=== PATIENT | male | born 1990 | race American Indian/Alaskan Native ===

== ENCOUNTER 2020-10-21 14:29 | Inpatient (IN) | payer OTHER ==
--- NOTE | 2020-10-21 16:14 | Event Note ---
ED Screening Note Date of service: 10/21/20 Time: 16:11 ED Screening Note: 29-year-old -[place] male presents to the emergency room complaining of left lower quadrant abdominal pain that radiates to the epigastric area x1-1/2 weeks. Patient states that this is been intermittent but now becoming constant. Patient states he has tried ibuprofen and Gas-X with no relief. Patient does admit that he drinks alcohol smokes cigarettes quit 2 weeks ago and smokes marijuana daily. Patient has a past medical history of hypertension but has never been on medication. Patient states they were told him it was white coat syndrome. The patient does admit when he checks his blood pressure at home that is elevated. This initial assessment/diagnostic orders/clinical plan/treatment(s) is/are subject to change based on patients health status, clinical progression and re- assessment by fellow clinical providers in the ED. Further treatment and workup at subsequent clinical providers discretion. Patient/guardian urged not to elope from the ED as their condition may be serious if not clinically assessed and managed. Initial orders include: CBC CMP, lipase mag, phosphorus, CT abdomen with contrast and urinalysis
[2020-10-21 16:29] LABS: Basophils # (Auto) 0.2 K/mm3 (0.0-0.1); Basophils % (Auto) 1.5 % (0.0-1.8); Eosinophils # (Auto) 0.1 K/mm3 (0.0-0.4); Eosinophils % (Auto) 1.1 % (0.0-4.3); Hematocrit 39.1 % (35.5-45.6); Hemoglobin 12.6 gm/dl (11.8-15.2); Lymphocytes # (Auto) 1.1 K/mm3 (1.2-5.4); Mean Corpuscular HGB Conc 32 % (32-34); Mean Corpuscular Volume 84 fl (84-94); Monocytes # (Auto) 0.4 K/mm3 (0.0-0.8); Monocytes % (Auto) 4.3 % (0.0-7.3); Platelet Count 409 K/mm3 (140-440); Red Blood Count 4.67 M/mm3 (3.65-5.03); Red Cell Distribution Width 15.6 % (13.2-15.2)
[2020-10-21] MEDS ORDERED: MORPHINE 4 MG/1 ML INJ IV ONE (16:36)
[2020-10-21] MEDS ORDERED: ONDANSETRON 4 MG/2 ML INJ IV ONE ×2 (16:36→18:56)
[2020-10-21] MEDS ORDERED: FAMOTIDINE 20 MG/2 ML INJ IV ONE (16:36)
--- NOTE | 2020-10-21 16:37 | Emergency Department Report ---
ED Abdominal Pain HPI - General Chief Complaint: Abdominal Pain Stated Complaint: ABDOMINAL PAIN Time Seen by Provider: 10/21/20 16:28 Source: patient Mode of arrival: Ambulatory Limitations: No Limitations - History of Present Illness Initial Comments: 29-year-old male who reports history of hypertension but noncompliant with medications presents to the ER today with complaints of epigastric pain. Patient states that has been having intermittent epigastric pain for about 1-1/2 weeks. Patient states that the pain got significantly worse last night. He describes as a sharp pain that is nonradiating. He states that he took 6 Motrins to get some partial relief from the pain. He reports associated intermittent shortness of breath for the past 1-1/2 weeks as well as cough and wheezing. He denies any associated nausea, vomiting, chest pain or bowel changes. He denies any UTI symptoms. He denies any fever or chills. Patient denies any abdominal surgeries. Patient reports that he does have a history of daily alcohol use, but he stopped drinking when he started having the pain. He states that he was drinking 4 beers per day, but at the beginning of the year he dropped down to 2-3 beers per day. Patient reports that he does have a history of tobacco abuse as well as marijuana abuse. He denies any other illicit drug use. Patient denies any history of lung disease or heart disease. MD Complaint: abdominal pain -: Gradual, week(s) (1.5) - Related Data Allergies Allergy/AdvReac Type Severity Reaction Status Date / Time No Known Allergies Allergy Unverified 10/21/20 15:18 ED Review of Systems ROS: Stated complaint: ABDOMINAL PAIN Other details as noted in HPI Comment: All other systems reviewed and negative Constitutional: denies: chills, diaphoresis, fever, malaise, weakness Eyes: denies: eye pain, eye discharge, vision change ENT: denies: ear pain, throat pain Respiratory: cough, shortness of breath. denies: orthopnea, SOB with exertion, SOB at rest, wheezing Cardiovascular: denies: chest pain, palpitations, edema, paroxysmal nocturnal dyspnea Gastrointestinal: abdominal pain. denies: nausea, vomiting, diarrhea, constipation, hematemesis, melena, hematochezia Genitourinary: denies: urgency, dysuria, frequency, hematuria, discharge, testicular pain Musculoskeletal: denies: back pain, joint swelling, arthralgia Skin: denies: rash, lesions, change in color, change in hair/nails, pruritus Neurological: denies: headache, weakness, paresthesias Psychiatric: denies: anxiety, depression, auditory hallucinations, visual hallucinations, suicidal thoughts Hematological/Lymphatic: denies: easy bleeding, easy bruising ED Past Medical Hx - Past Medical History Hx Hypertension: Yes - Surgical History Past Surgical History?: No ED Physical Exam - General Limitations: No Limitations General appearance: alert, in no apparent distress - Head Head exam: Present: atraumatic, normocephalic - Eye Eye exam: Present: normal appearance, PERRL, EOMI Pupils: Present: normal accommodation - ENT ENT exam: Present: normal exam, mucous membranes moist - Neck Neck exam: Present: normal inspection, full ROM. Absent: meningismus - Respiratory Respiratory exam: Present: wheezes (Mild expiratory wheezing noted in the right lung ibarra). Absent: respiratory distress, rales, rhonchi, stridor - Cardiovascular Cardiovascular Exam: Present: tachycardia, other (+murmur on exam) - GI/Abdominal GI/Abdominal exam: Present: soft, tenderness (TTP epigastric area with mild guarding. No rebound or rigidity). Absent: distended, guarding, rebound - Extremities Exam Extremities exam: Present: normal inspection. Absent: pedal edema - Neurological Exam Neurological exam: Present: alert, oriented X3, CN II-XII intact, normal gait - Psychiatric Psychiatric exam: Present: normal affect, normal mood - Skin Skin exam: Present: intact ED Course Vital Signs 10/21/20 10/21/20 10/21/20 15:21 17:41 17:46 Temperature 98.2 F Pulse Rate 115 H 118 H 118 H Respiratory 20 36 H Rate Blood Pressure 186/145 204/158 204/158 Blood Pressure [Right] O2 Sat by Pulse 99 95 Oximetry 10/21/20 10/21/20 10/21/20 18:00 18:11 18:16 Temperature Pulse Rate 91 H 87 Respiratory 38 H 19 18 Rate Blood Pressure 163/122 155/113 Blood Pressure [Right] O2 Sat by Pulse 93 Oximetry 10/21/20 10/21/20 10/21/20 18:30 18:46 19:00 Temperature Pulse Rate 85 86 85 Respiratory 26 H 33 H 19 Rate Blood Pressure 134/89 133/87 109/79 Blood Pressure [Right] O2 Sat by Pulse 100 100 100 Oximetry 10/21/20 10/21/20 10/21/20 19:16 19:28 19:30 Temperature Pulse Rate 85 85 82 Respiratory 14 20 Rate Blood Pressure 104/50 111/75 Blood Pressure 111/75 [Right] O2 Sat by Pulse 99 99 92 Oximetry 10/21/20 21:13 Temperature Pulse Rate 88 Respiratory 26 H Rate Blood Pressure Blood Pressure 169/128 [Right] O2 Sat by Pulse 100 Oximetry ED Medical Decision Making - Lab Data Result diagrams: 10/21/20 16:09 10/21/20 17:45 - EKG Data EKG shows normal: sinus rhythm Rate: tachycardia (114) - Radiology Data Radiology results: report reviewed [facility] [address] [place] [address] XRay Report Signed Patient: YOLANDA VAIL MR#: [id number] 7 : 1990 Acct:[id number] Age/Sex: 29 / M ADM Date: 10/21/20 Loc: ED Attending Dr: Ordering Physician: MARISA PRITCHETT Date of Service: 10/21/20 Procedure(s): XR chest 1V ap Accession Number(s): [id number] cc: MARISA PRITCHETT Fluoro Time In Minutes: CHEST 1 VIEW INDICATION: epigastric pain. COMPARISON: None FINDINGS: SUPPORT DEVICES: None. HEART: Within normal limits. LUNGS/PLEURA: Mild patchy multifocal airspace disease greatest in the right lung base. ADDITIONAL FINDINGS: None. IMPRESSION: 1. Pulmonary findings as above. Signer Name: Maxim Arguelles MD Signed: 10/21/2020 5:06 PM Workstation Name: [id number] Transcribed By: JW Dictated By: Maxim Arguelles MD Electronically Authenticated By: Maxim Arguelles MD Signed Date/Time: 10/21/201705 DD/ 05 TD/TT: Patient: YOLANDA VAIL MR#: [id number] 7 : 1990 Acct:[id number] Age/Sex: 29 / M ADM Date: 10/21/20 Loc: ED Attending Dr: Ordering Physician: DONATO FRAZIER Date of Service: 10/21/20 Procedure(s): CT abdomen pelvis wo con Accession Number(s): [id number] cc: DONATO FRAZIER CT ABDOMEN AND PELVIS WITHOUT CONTRAST INDICATION: Epigastric pain and tenderness. TECHNIQUE: Axial CT images were obtained through the abdomen and pelvis without IV contrast. All CT scans at this location are performed using CT dose reduction for ALARA by means of automated exposure control. COMPARISON: None available. FINDINGS: LOWER CHEST: Moderate cardiomegaly. Airspace consolidation right lower lobe with small parapneumonic right pleural effusion LIVER: No significant abnormality. GALLBLADDER: Collapsed. No significant abnormality BILE DUCTS: No significant abnormality. PANCREAS: No significant abnormality. SPLEEN: No significant abnormality. ADRENALS: No significant abnormality. RIGHT KIDNEY and URETER: No significant abnormality. LEFT KIDNEY and URETER: No significant abnormality. STOMACH and SMALL BOWEL: No significant abnormality. COLON: No significant abnormality. APPENDIX: Normal PERITONEUM: No free fluid. No free air. No fluid collection. LYMPH NODES: No significant adenopathy. AORTA and ARTERIES: No significant abnormality. IVC and VEINS: No significant abnormality. URINARY BLADDER: No significant abnormality. REPRODUCTIVE ORGANS: No significant abnormality. ADDITIONAL FINDINGS: None. SKELETAL SYSTEM: No significant abnormality. IMPRESSION: 1. Right lower lobe pneumonia with small right parapneumonic pleural effusion 2. No urinary tract calculi or hydronephrosis. Signer Name: Twin Casanova MD Signed: 10/21/2020 4:56 PM Workstation Name: [id number] Transcribed By: TL Dictated By: Twin Casanova MD Electronically Authenticated By: Twin Casanova MD Signed Date/Time: 10/21/201655 DD/ 52 TD/TT: - Medical Decision Making Labs, EKG, CT abdomen pelvis and chest x-ray reviewed. Work-up today shows right lower lobe pneumonia with the right pleural effusion, as well as renal failure with a creatinine of 4.2 and a BUN of 47, and elevated troponin of 0.94 suspect secondary to elevated creatinine and hypertensive emergency. Case discussed with Dr Munoz, recommend labetolol and COVID PUI order set and Agree with admission 1730: Discussed case with Dr Bran, hospitalist. He has accepted patient. Discussed lab results and imaging results and concerning diagnoses with patient and the reason and need for admission. Patient agreed with plan. He is currently resting comfortably and is stable. Critical care attestation.: If time is entered above; I have spent that time in minutes in the direct care of this critically ill patient, excluding procedure time. ED Disposition Clinical Impression: Pneumonia, Pleural effusion, Acute renal failure, Person under investigation for COVID-19, Elevated troponin, Hypertensive emergency Disposition: DC09 OP ADMIT IP TO THIS HOSP Is pt being admited?: Yes Condition: Stable
[2020-10-21 17:01] LABS: Albumin 3.3 g/dL (3.9-5); Calcium 9.2 mg/dL (8.4-10.2)
--- NOTE | 2020-10-21 17:01 | Cat Scan Report ---
CT ABDOMEN AND PELVIS WITHOUT CONTRAST INDICATION: Epigastric pain and tenderness. TECHNIQUE: Axial CT images were obtained through the abdomen and pelvis without IV contrast. All CT scans at [facility] are performed using CT dose reduction for ALARA by means of automated exposure control. COMPARISON: None available. FINDINGS: LOWER CHEST: Moderate cardiomegaly. Airspace consolidation right lower lobe with small parapneumonic right pleural effusion LIVER: No significant abnormality. GALLBLADDER: Collapsed. No significant abnormality BILE DUCTS: No significant abnormality. PANCREAS: No significant abnormality. SPLEEN: No significant abnormality. ADRENALS: No significant abnormality. RIGHT KIDNEY and URETER: No significant abnormality. LEFT KIDNEY and URETER: No significant abnormality. STOMACH and SMALL BOWEL: No significant abnormality. COLON: No significant abnormality. APPENDIX: Normal PERITONEUM: No free fluid. No free air. No fluid collection. LYMPH NODES: No significant adenopathy. AORTA and ARTERIES: No significant abnormality. IVC and VEINS: No significant abnormality. URINARY BLADDER: No significant abnormality. REPRODUCTIVE ORGANS: No significant abnormality. ADDITIONAL FINDINGS: None. SKELETAL SYSTEM: No significant abnormality. IMPRESSION: 1. Right lower lobe pneumonia with small right parapneumonic pleural effusion 2. No urinary tract calculi or hydronephrosis. Signer Name: Twin Casanova MD Signed: 10/21/2020 4:56 PM Workstation Name: [id number]
[2020-10-21 17:10] LABS: Bacteria,Urine 1+ /HPF (Negative); Bilirubin,Urine NEG (Negative); Blood,Urine SM (Negative); Color,Urine Yellow (Yellow); Mucus,Urine FEW /HPF; Urobilinogen,Urine < 2.0 mg/dL (<2.0)
--- NOTE | 2020-10-21 17:11 | XRay Report ---
CHEST 1 VIEW INDICATION: epigastric pain. COMPARISON: None FINDINGS: SUPPORT DEVICES: None. HEART: Within normal limits. LUNGS/PLEURA: Mild patchy multifocal airspace disease greatest in the right lung base. ADDITIONAL FINDINGS: None. IMPRESSION: 1. Pulmonary findings as above. Signer Name: Maxim Arguelles MD Signed: 10/21/2020 5:06 PM Workstation Name: [id number]
[2020-10-21] MEDS ORDERED: cefTRIAXone/NS 1 GM/50 ML 1 GM/50 ML BAG IV ONE (17:18)
[2020-10-21] MEDS ORDERED: AZITHROMYCIN/NS 500 MG/250 ML 500 MG/250 ML BAG IV ONE (17:18)
[2020-10-21] MEDS: SODIUM CHLORIDE 0.9% 1000 ML 1,000 ML IV ONE ×2 (17:40→20:21)
[2020-10-21 18:21] LABS: C-Reactive Protein 0.6 mg/dL (0.00-1.30)
[2020-10-21 20:36] LABS: Chol/HDL Ratio 2.8 %
[2020-10-21] MEDS ORDERED: hydrALAZINE 20 MG/1 ML INJ IV PRN ×2 (21:25→23:06)
[2020-10-21] MEDS ORDERED: MORPHINE 2 MG/1 ML INJ IV ONE (21:25)
[2020-10-21] MEDS ORDERED: LOSARTAN 50 MG TAB PO SCH (22:00)
[2020-10-21] MEDS ORDERED: ACETAMINOPHEN 325 MG TAB PO PRN (23:04)
[2020-10-21] MEDS ORDERED: HYDROmorphone 1 MG/1 ML INJ IV PRN (23:04)
[2020-10-21] MEDS ORDERED: ONDANSETRON 4 MG/2 ML INJ IV PRN (23:04)
[2020-10-21] MEDS: carvediloL 12.5 MG TAB PO SCH (23:05)
[2020-10-21] MEDS: amLODIPine 10 MG TAB PO SCH (23:05)
[2020-10-21] MEDS: hydrALAZINE 25 MG TAB PO SCH (23:05)
--- NOTE | 2020-10-21 23:06 | History and Physical Report ---
History of Present Illness Date of examination: 10/21/20 Date of admission: 10/21/20 17:41 Chief complaint: Abdominal pain and headache for 1 day History of present illness: 29-year-old -[place] male with history of hypertension and noncompliant with medication comes in for intermittent epigastric pain for 1-1/2 weeks. Also headache for 1-1/2 weeks. Pain is sharp and nonradiating. Patient took six more pills for with partial relief of pain. Also intermittent shortness of breath for past 1-1/2 weeks as well as cough and wheezing. Patient also has a history of alcohol use but very stopped drinking when he started having the pain. Patient just was drinking about four beers per day. At the beginning of the year he dropped down to 2-3 beers a day. Patient also has a history of tobacco use and marijuana use. Very noncompliant with his blood pressure medications. - Past Medical History Hx Hypertension: Yes - Surgical History Past Surgical History?: No Family history Htn Social history tobacco use and alcohol use and marijuana use Review of Systems ROS: Stated complaint: ABDOMINAL PAIN Other details as noted in HPI Comment: All other systems reviewed and negative Constitutional: denies: chills, diaphoresis, fever, malaise, weakness Eyes: denies: eye pain, eye discharge, vision change ENT: denies: ear pain, throat pain Respiratory: cough, shortness of breath. denies: orthopnea, SOB with exertion, SOB at rest, wheezing Cardiovascular: denies: chest pain, palpitations, edema, paroxysmal nocturnal dyspnea Gastrointestinal: abdominal pain. denies: nausea, vomiting, diarrhea, co nstipation, hematemesis, melena, hematochezia Genitourinary: denies: urgency, dysuria, frequency, hematuria, discharge, testicular pain Musculoskeletal: denies: back pain, joint swelling, arthralgia Skin: denies: rash, lesions, change in color, change in hair/nails, pruritus Neurological: denies: headache, weakness, paresthesias Psychiatric: denies: anxiety, depression, auditory hallucinations, visual hallucinations, suicidal thoughts Hematological/Lymphatic: denies: easy bleeding, easy bruising Medications and Allergies Allergies Allergy/AdvReac Type Severity Reaction Status Date / Time No Known Allergies Allergy Unverified 10/21/20 15:18 Active Meds: Active Medications Amlodipine Besylate (Amlodipine 10 Mg Tab) 10 mg PO QDAY JOSEPH Carvedilol (Carvedilol 12.5 Mg Tab) 12.5 mg PO BID JOSEPH Hydralazine HCl (Hydralazine 20 Mg/1 Ml Inj) 5 mg IV Q4HR PRN PRN Reason: Hypertension Hydralazine HCl (Hydralazine 25 Mg Tab) 50 mg PO Q8HR JOSEPH Sodium Chloride (Nacl 0.9% 1000 Ml) 1,000 mls @ 125 mls/hr IV ONCE ONE Stop: 10/22/20 00:35 Last Admin: 10/21/20 20:21 Dose: 125 mls/hr Documented by: Exam - Constitutional Vitals: Temp Pulse Resp BP Pulse Ox 98.2 F 90 22 168/129 100 10/21/20 15:21 10/21/20 21:35 10/21/20 21:37 10/21/20 21:35 10/21/20 21:13 General appearance: Present: mild distress, well-nourished - EENT Eyes: Present: PERRL ENT: hearing intact, clear oral mucosa - Neck Neck: Present: supple, normal ROM - Respiratory Respiratory effort: normal Respiratory: bilateral: CTA - Cardiovascular Heart rate: 78 Rhythm: regular Heart Sounds: Present: S1 & S2. Absent: rub, click - Extremities Extremities: no ischemia, pulses intact, pulses symmetrical, No edema Peripheral Pulses: within normal limits - Abdominal General gastrointestinal: Present: soft, non-tender, non-distended, normal bowel sounds Male genitourinary: Present: normal - Integumentary Integumentary: Present: clear, warm, dry - Musculoskeletal Musculoskeletal: gait normal, strength equal bilaterally - Psychiatric Psychiatric: appropriate mood/affect, intact judgment & insight - Neurologic Neurologic: CNII-XII intact, moves all extremities - Allied Health Allied health notes reviewed: nursing, case management HEART Score - HEART Score History: Moderately suspicious Age: < 45 Risk factors: 1-2 risk factors Troponin: Troponin T 0.090 ng/mL (0.00-0.029) H 10/21/20 19:14 - Critical Actions Critical Actions: 4-6 pts:12-16.6% risk of adverse cardiac event. Should be admitted Results - Labs CBC & Chem 7: 10/21/20 16:09 10/21/20 17:45 Labs: Laboratory Last Values WBC 10.2 K/mm3 (4.5-11.0) 10/21/20 16:09 RBC 4.67 M/mm3 (3.65-5.03) 10/21/20 16:09 Hgb 12.6 gm/dl (11.8-15.2) 10/21/20 16:09 Hct 39.1 % (35.5-45.6) 10/21/20 16:09 MCV 84 fl (84-94) 10/21/20 16:09 MCH 27 pg (28-32) L 10/21/20 16:09 MCHC 32 % (32-34) 10/21/20 16:09 RDW 15.6 % (13.2-15.2) H 10/21/20 16:09 Plt Count 409 K/mm3 (140-440) 10/21/20 16:09 Lymph % (Auto) 11.0 % (13.4-35.0) L 10/21/20 16:09 [place] % (Auto) 4.3 % (0.0-7.3) 10/21/20 16:09 Eos % (Auto) 1.1 % (0.0-4.3) 10/21/20 16:09 Baso % (Auto) 1.5 % (0.0-1.8) 10/21/20 16:09 Lymph # (Auto) 1.1 K/mm3 (1.2-5.4) L 10/21/20 16:09 [place] # (Auto) 0.4 K/mm3 (0.0-0.8) 10/21/20 16:09 Eos # (Auto) 0.1 K/mm3 (0.0-0.4) 10/21/20 16:09 Baso # (Auto) 0.2 K/mm3 (0.0-0.1) H 10/21/20 16:09 Seg Neutrophils % 82.1 % (40.0-70.0) H 10/21/20 16:09 Seg Neutrophils # 8.4 K/mm3 (1.8-7.7) H 10/21/20 16:09 D-Dimer 969.83 ng/mlDDU (0-234) H 10/21/20 17:40 Sodium 135 mmol/L (137-145) L 10/21/20 16:09 Potassium 3.5 mmol/L (3.6-5.0) L 10/21/20 16:09 Chloride 97.1 mmol/L (98-107) L 10/21/20 16:09 Carbon Dioxide 25 mmol/L (22-30) 10/21/20 16:09 Anion Gap 16 mmol/L 10/21/20 16:09 BUN 47 mg/dL (9-20) H 10/21/20 16:09 Creatinine 4.2 mg/dL (0.8-1.3) H 10/21/20 16:09 Estimated GFR 17 ml/min 10/21/20 16:09 BUN/Creatinine Ratio 11 % 10/21/20 16:09 Glucose 106 mg/dL (75-100) H 10/21/20 17:45 Lactic Acid 1.00 mmol/L (0.7-2.0) 10/21/20 17:27 Calcium 9.2 mg/dL (8.4-10.2) 10/21/20 16:09 Phosphorus 4.80 mg/dL (2.5-4.5) H 10/21/20 16:16 Magnesium 1.90 mg/dL (1.7-2.3) 10/21/20 16:16 Ferritin 71.8 ng/mL (30.0-300.0) 10/21/20 17:45 Total Bilirubin 0.50 mg/dL (0.1-1.2) 10/21/20 16:09 AST 36 units/L (5-40) 10/21/20 16:09 ALT 29 units/L (7-56) 10/21/20 16:09 Alkaline Phosphatase 102 units/L (35-129) 10/21/20 16:09 Lactate Dehydrogenase 470 units/L (91-180) H 10/21/20 17:45 Troponin T 0.090 ng/mL (0.00-0.029) H 10/21/20 19:14 C-Reactive Protein 0.60 mg/dL (0.00-1.30) 10/21/20 17:45 NT-Pro-B Natriuret Pep 43063 pg/mL (0-450) H 10/21/20 17:27 Total Protein 5.1 g/dL (6.3-8.2) L 10/21/20 16:09 Albumin 3.3 g/dL (3.9-5) L 10/21/20 16:09 Albumin/Globulin Ratio 1.8 % 10/21/20 16:09 Triglycerides 111 mg/dL (2-149) 10/21/20 19:14 Cholesterol 132 mg/dL (50-199) 10/21/20 19:14 LDL Cholesterol Direct 73 mg/dL (50-130) 10/21/20 19:14 HDL Cholesterol 47 mg/dL (40-59) 10/21/20 19:14 Cholesterol/HDL Ratio 2.80 % 10/21/20 19:14 Lipase 34 units/L (13-60) 10/21/20 16:09 Urine Color Yellow (Yellow) 10/21/20 Unknown Urine Turbidity Clear (Clear) 10/21/20 Unknown Urine pH 5.0 (5.0-7.0) 10/21/20 Unknown Ur Specific [place] 1.017 (1.003-1.030) 10/21/20 Unknown Urine Protein 100 mg/dl mg/dL (Negative) 10/21/20 Unknown Urine Glucose (UA) Neg mg/dL (Negative) 10/21/20 Unknown Urine Ketones Neg mg/dL (Negative) 10/21/20 Unknown Urine Blood Sm (Negative) 10/21/20 Unknown Urine Nitrite Neg (Negative) 10/21/20 Unknown Urine Bilirubin Neg (Negative) 10/21/20 Unknown Urine Urobilinogen < 2.0 mg/dL (<2.0) 10/21/20 Unknown Ur Leukocyte Esterase Mod (Negative) 10/21/20 Unknown Urine WBC (Auto) 37.0 /HPF (0.0-6.0) H 10/21/20 Unknown Urine RBC (Auto) 2.0 /HPF (0.0-6.0) 10/21/20 Unknown U Epithel Cells (Auto) 2.0 /HPF (0-13.0) 10/21/20 Unknown Urine Bacteria (Auto) 1+ /HPF (Negative) 10/21/20 Unknown Urine Mucus Few /HPF 10/21/20 Unknown Microbiology: Microbiology 10/21/20 17:27 Peripheral/Venous Blood Culture - Preliminary Culture in Progress 10/21/20 17:27 Peripheral/Venous Blood Culture - Preliminary Culture in Progress - Imaging and Cardiology EKG: report reviewed (Sinus rhythm no acute ST-T wave changes) Chest x-ray: report reviewed CT scan - abdomen: report reviewed Imaging and Cardiology: Chest x-ray Mild patchy multifocal airspace disease greatest in the right lung base CT abdomen and pelvis without contrast Right lower lobe pneumonia with small right parapneumonic pleural effusion Assessment and Plan Advance Directives: Yes (Full code) VTE prophylaxis?: Chemical Plan of care discussed with patient/family: Yes - Patient Problems (1) Hypertensive emergency Current Visit: Yes Status: Acute Plan to address problem: Patient initiated on IV hydralazine 50 every 8, Coreg 12.5 every 12 and amlodipine 10 mg daily IV hydralazine 10 mg every 3 as needed IV for systolic more than 150 and diastolic more than 100 Patient counseled about compliance (2) Acute exacerbation of CHF (congestive heart failure) Current Visit: Yes Status: Acute Qualifiers: Heart failure type: combined systolic and diastolic Qualified Code(s): 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 Plan to address problem: Echocardiogram for ejection fraction and valve function IV Lasix x1 pending echocardiogram Cardiology consult requested (3) Acute renal failure Current Visit: Yes Status: Acute Plan to address problem: Patient has GILMAR superimposed on chronic kidney disease We'll get ultrasound and renal consult Gentle hydration for the time being (4) Pneumonia Current Visit: Yes Status: Acute Plan to address problem: Patient has bilateral patchy opacities I am more in favor of congestive heart failure because of elevated BNP of 33,000 We'll treat with IV ceftriaxone and IV Zithromax for now ID consult to be requested (5) Person under investigation for COVID-19 Current Visit: Yes Status: Acute Plan to address problem: Coronavirus PCR requested (6) EtOH dependence Current Visit: Yes Status: Chronic Qualifiers: Substance use status: uncomplicated Qualified Code(s): F10.20 - Alcohol dependence, uncomplicated Plan to address problem: CIWA protocol initiated (7) Nicotine dependence Current Visit: Yes Status: Chronic Qualifiers: Nicotine product type: cigarettes Plan to address problem: Counseled NicoDerm patch initiated (8) Elevated troponin Current Visit: Yes Status: Acute Plan to address problem: Possible secondary to troponin leak in view of elevated creatinine CK and CK-MB are requested Cardiology consult requested (9) DVT prophylaxis Current Visit: Yes Status: Acute Plan to address problem: On heparin and GI prophylaxis
[2020-10-22 00:28] LABS: Creatine Kinase MB 4.6 ng/mL (0.0-4.0)
[2020-10-22] MEDS: hydrALAZINE 25 MG TAB PO SCH ×3 (05:12→21:20)
[2020-10-22] MEDS: oxyCODONE /ACETAMINOPHEN 5-325MG TAB PO PRN ×2 (05:44→21:20)
[2020-10-22] MEDS ORDERED: LORazepam 2 MG/ML VIAL IV PRN ×2 (07:07)
[2020-10-22 08:28] LABS: Creatine Kinase MB 3.2 ng/mL (0.0-4.0)
--- NOTE | 2020-10-22 08:45 | Consultation ---
History of Present Illness - Reason for Consult Consult date: 10/22/20 acute renal failure - History of Present Illness The patient is a 29 YO AAM with history significant for Hypertension and no ncompliant with medication who presented to [facility] ED with c/o intermittent epigastric pain for the past 1-1/2 weeks. The pain is sharp, intermittent and nonradiating. Patient also c/o intermittent shortness of breath, cough and wheezing. Patient used to drink 6 pack of beer now decreased to 1-2 bottles of beer a day. Patient admits tobacco use and marijuana use. Initial BP was around 200/160. Labs significant for Creat 5.4 and BUN 50. Denies prior kidney problem. Nephrology was consulted for further evaluation of decreased kidney function. Medications and Allergies Allergies Allergy/AdvReac Type Severity Reaction Status Date / Time No Known Allergies Allergy Unverified 10/21/20 15:18 Active Meds: Active Medications Acetaminophen (Acetaminophen 325 Mg Tab) 650 mg PO Q4H PRN PRN Reason: Pain MILD(1-3)/Fever >100.5/HUERTA Amlodipine Besylate (Amlodipine 10 Mg Tab) 10 mg PO QDAY [facility] Last Admin: 10/21/20 23:05 Dose: 10 mg Documented by: Azithromycin (Azithromycin 250 Mg Tab) 500 mg PO QPM [facility] Stop: 10/25/20 18:01 Carvedilol (Carvedilol 12.5 Mg Tab) 12.5 mg PO BID [facility] Last Admin: 10/21/20 23:05 Dose: 12.5 mg Documented by: Hydralazine HCl (Hydralazine 25 Mg Tab) 50 mg PO Q8HR [facility] Last Admin: 10/22/20 05:12 Dose: 50 mg Documented by: Hydralazine HCl (Hydralazine 20 Mg/1 Ml Inj) 10 mg IV Q3H PRN PRN Reason: Blood Pressure Hydromorphone HCl (Hydromorphone 1 Mg/1 Ml Inj) 0.5 mg IV Q3H PRN PRN Reason: Pain , Severe (7-10) Ceftriaxone Sodium (Rocephin/Ns 1 Gm/50 Ml) 1 gm in 50 mls @ 100 mls/hr IV Q24H JOSEPH; Protocol Lorazepam (Lorazepam 2 Mg/Ml Vial) 2 mg IV Q1H PRN PRN Reason: CIWA-Ar 8-15 Lorazepam (Lorazepam 2 Mg/Ml Vial) 4 mg IV Q1H PRN PRN Reason: CIWA-Ar 16-25 Nicotine (Nicotine 14 Mg/24 Hr Patch) 14 mg TD QDAY JOSEPH Ondansetron HCl (Ondansetron 4 Mg/2 Ml Inj) 4 mg IV Q8H PRN PRN Reason: Nausea And Vomiting Oxycodone/Acetaminophen (Oxycodone /Acetaminophen 5-325mg Tab) 1 tab PO Q6H PRN PRN Reason: Pain, Moderate (4-6) Last Admin: 10/22/20 05:44 Dose: 1 tab Documented by: Sodium Chloride (Sodium Chloride 0.9% 10 Ml Flush Syringe) 10 ml IV BID JOSEPH Sodium Chloride (Sodium Chloride 0.9% 10 Ml Flush Syringe) 10 ml IV PRN PRN PRN Reason: LINE FLUSH Review of Systems Constitutional: no weight loss, no weight gain, no fever, no chills, no anorexia, no weakness Ears, nose, mouth and throat: no dysphagia Cardiovascular: shortness of breath, high blood pressure, no chest pain, no orthopnea, no edema, no syncope, no lightheadedness, no leg edema Respiratory: shortness of breath, dyspnea on exertion, no cough Gastrointestinal: no abdominal pain, no nausea, no vomiting, no diarrhea, no melena Genitourinary Male: no dysuria, no hematuria Rectal: no bleeding Musculoskeletal: no muscle weakness Neurological: no seizures, no syncope, no aphasia, no change in speech, no change in mentation, no confusion Exam - Vital Signs Vital signs: Vital Signs Temp Pulse Resp BP Pulse Ox 98.2 F 115 H 20 186/145 99 10/21/20 15:21 10/21/20 15:21 10/21/20 15:21 10/21/20 15:21 10/21/20 15:21 Results - Lab Results 10/21/20 16:09 10/23/20 07:15 Most recent lab results Calcium 9.2 mg/dL (8.4-10.2) 10/21/20 16:09 Phosphorus 5.20 mg/dL (2.5-4.5) H 10/22/20 07:20 Magnesium 1.70 mg/dL (1.7-2.3) 10/22/20 07:20 Assessment and Plan 1. Acute kidney injury: GILMAR superimposed on CKD stage 4. Renal US showed atrophic R kidney and negative for hydro. Baseline renal function is unknown. Most likely advanced CKD in the setting of poorly controlled HTN. Monitor renal function. Renal prognosis is guarded. Avoid nephrotoxic agents. Meds dosage based on GFR. 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 2. FEN: Hypokalemia, replete K, monitor. Monitor lytes and volume status. 3. Acute hypoxic respiratory failure, POA: 2/2 PNA and CHF. COVID test negative. Supplemental O2 as needed. 4. Sepsis, POA: 2/2 PNA vs UTI. Abx. 5. Elevated Troponins: Pt denies any chest pain. Non-specific per Cards. Followed by Cards. 6. Acute CHF: LVEF 20-25%. 7. UTI: On abx. 8. Accelerated hypertension: BP is improving. Monitor. 9. EtOH dependence. 10. Nicotine dependence. Subjective: Patient was seen and examined at the bedside. Objective: General appearance: well-developed, appears stated age, no distress noted HEENT: ATNC, CARLOS Neck: trachea midline Respiratory: ctab Heart: regular, S1S2, no murmur Gastrointestinal: soft, normoactive bowel sounds, not tender Integumentary: no rash, warm and dry Ext: no edema Neurologic: AO, non-focal Musculoskeletal: no obvious deformity
--- NOTE | 2020-10-22 09:17 | Progress Note ---
Assessment and Plan Assessment and plan: Sepsis. Present on admission patient meets criteria given the tachycardia, tachypnea and diagnosis of UTI/pneumonia. Acute hypoxic respiratory failure. Etiology secondary to CHF and pneumonia. Acute CHF. Acute renal failure. Etiology secondary to acute kidney injury from sepsis/ATN Pneumonia with parapneumonic effusion. UTI. Accelerated hypertension Elevated troponin. Etiology likely secondary to sepsis from type II TN and renal insufficiency. EtOH dependence. Nicotine dependence. 10/22/2020. CT of the abdomen pelvis showed no evidence of hydronephrosis or calculi. Renal ultrasound pending. Nephrology consulted for acute renal failure. Continue IV antibiotics of Rocephin and azithromycin for pneumonia and UTI. Follow-up blood and urine cultures. Covid testing pending. Follow-up echocardiogram. Cardiology consultation pending. History Interval history: No new issues overnight. Hospitalist Physical - Constitutional Vitals: Temp Pulse Resp BP Pulse Ox 98.1 F 76 20 127/82 96 10/22/20 04:34 10/22/20 05:12 10/22/20 08:44 10/22/20 05:12 10/22/20 04:34 General appearance: Present: mild distress, well-nourished - EENT Eyes: Present: PERRL, EOM intact ENT: hearing intact, clear oral mucosa, dentition normal - Neck Neck: Present: supple, normal ROM - Respiratory Respiratory effort: normal Respiratory: bilateral: CTA - Cardiovascular Rhythm: regular Heart Sounds: Present: S1 & S2. Absent: gallop, rub - Extremities Extremities: no ischemia, No edema, Full ROM - Abdominal General gastrointestinal: soft, non-tender, non-distended, normal bowel sounds - Integumentary Integumentary: Present: clear, warm, dry - Neurologic Neurologic: CNII-XII intact, moves all extremities HEART Score - HEART Score Age: < 45 Risk factors: 1-2 risk factors Troponin: Troponin T 0.086 ng/mL (0.00-0.029) H 10/22/20 07:20 - Critical Actions Critical Actions: 4-6 pts:12-16.6% risk of adverse cardiac event. Should be admitted Results - Labs CBC & Chem 7: 10/21/20 16:09 10/21/20 17:45 Labs: Laboratory Last Values WBC 10.2 K/mm3 (4.5-11.0) 10/21/20 16:09 RBC 4.67 M/mm3 (3.65-5.03) 10/21/20 16:09 Hgb 12.6 gm/dl (11.8-15.2) 10/21/20 16:09 Hct 39.1 % (35.5-45.6) 10/21/20 16:09 MCV 84 fl (84-94) 10/21/20 16:09 MCH 27 pg (28-32) L 10/21/20 16:09 MCHC 32 % (32-34) 10/21/20 16:09 RDW 15.6 % (13.2-15.2) H 10/21/20 16:09 Plt Count 409 K/mm3 (140-440) 10/21/20 16:09 Lymph % (Auto) 11.0 % (13.4-35.0) L 10/21/20 16:09 Weston % (Auto) 4.3 % (0.0-7.3) 10/21/20 16:09 Eos % (Auto) 1.1 % (0.0-4.3) 10/21/20 16:09 Baso % (Auto) 1.5 % (0.0-1.8) 10/21/20 16:09 Lymph # (Auto) 1.1 K/mm3 (1.2-5.4) L 10/21/20 16:09 Weston # (Auto) 0.4 K/mm3 (0.0-0.8) 10/21/20 16:09 Eos # (Auto) 0.1 K/mm3 (0.0-0.4) 10/21/20 16:09 Baso # (Auto) 0.2 K/mm3 (0.0-0.1) H 10/21/20 16:09 Seg Neutrophils % 82.1 % (40.0-70.0) H 10/21/20 16:09 Seg Neutrophils # 8.4 K/mm3 (1.8-7.7) H 10/21/20 16:09 D-Dimer 969.83 ng/mlDDU (0-234) H 10/21/20 17:40 Sodium 135 mmol/L (137-145) L 10/21/20 16:09 Potassium 3.5 mmol/L (3.6-5.0) L 10/21/20 16:09 Chloride 97.1 mmol/L (98-107) L 10/21/20 16:09 Carbon Dioxide 25 mmol/L (22-30) 10/21/20 16:09 Anion Gap 16 mmol/L 10/21/20 16:09 BUN 47 mg/dL (9-20) H 10/21/20 16:09 Creatinine 4.2 mg/dL (0.8-1.3) H 10/21/20 16:09 Estimated GFR 17 ml/min 10/21/20 16:09 BUN/Creatinine Ratio 11 % 10/21/20 16:09 Glucose 106 mg/dL (75-100) H 10/21/20 17:45 Lactic Acid 1.00 mmol/L (0.7-2.0) 10/21/20 17:27 Calcium 9.2 mg/dL (8.4-10.2) 10/21/20 16:09 Phosphorus 5.20 mg/dL (2.5-4.5) H 10/22/20 07:20 Magnesium 1.70 mg/dL (1.7-2.3) 10/22/20 07:20 Ferritin 71.8 ng/mL (30.0-300.0) 10/21/20 17:45 Total Bilirubin 0.50 mg/dL (0.1-1.2) 10/21/20 16:09 AST 36 units/L (5-40) 10/21/20 16:09 ALT 29 units/L (7-56) 10/21/20 16:09 Alkaline Phosphatase 102 units/L (35-129) 10/21/20 16:09 Ammonia 28.0 umol/L (25-60) 10/22/20 07:20 Lactate Dehydrogenase 470 units/L (91-180) H 10/21/20 17:45 Total Creatine Kinase 85 units/L (55-170) 10/22/20 07:20 CK-MB (CK-2) 3.2 ng/mL (0.0-4.0) 10/22/20 07:20 CK-MB (CK-2) Rel Index 3.7 (0-4) 10/22/20 07:20 Troponin T 0.086 ng/mL (0.00-0.029) H 10/22/20 07:20 C-Reactive Protein 0.60 mg/dL (0.00-1.30) 10/21/20 17:45 NT-Pro-B Natriuret Pep 95261 pg/mL (0-450) H 10/21/20 17:27 Total Protein 5.1 g/dL (6.3-8.2) L 10/21/20 16:09 Albumin 3.3 g/dL (3.9-5) L 10/21/20 16:09 Albumin/Globulin Ratio 1.8 % 10/21/20 16:09 Triglycerides 111 mg/dL (2-149) 10/21/20 19:14 Cholesterol 132 mg/dL (50-199) 10/21/20 19:14 LDL Cholesterol Direct 73 mg/dL (50-130) 10/21/20 19:14 HDL Cholesterol 47 mg/dL (40-59) 10/21/20 19:14 Cholesterol/HDL Ratio 2.80 % 10/21/20 19:14 Lipase 34 units/L (13-60) 10/21/20 16:09 Urine Color Yellow (Yellow) 10/21/20 Unknown Urine Turbidity Clear (Clear) 10/21/20 Unknown Urine pH 5.0 (5.0-7.0) 10/21/20 Unknown Ur Specific [place]rett 1.017 (1.003-1.030) 10/21/20 Unknown Urine Protein 100 mg/dl mg/dL (Negative) 10/21/20 Unknown Urine Glucose (UA) Neg mg/dL (Negative) 10/21/20 Unknown Urine Ketones Neg mg/dL (Negative) 10/21/20 Unknown Urine Blood Sm (Negative) 10/21/20 Unknown Urine Nitrite Neg (Negative) 10/21/20 Unknown Urine Bilirubin Neg (Negative) 10/21/20 Unknown Urine Urobilinogen < 2.0 mg/dL (<2.0) 10/21/20 Unknown Ur Leukocyte Esterase Mod (Negative) 10/21/20 Unknown Urine WBC (Auto) 37.0 /HPF (0.0-6.0) H 10/21/20 Unknown Urine RBC (Auto) 2.0 /HPF (0.0-6.0) 10/21/20 Unknown U Epithel Cells (Auto) 2.0 /HPF (0-13.0) 10/21/20 Unknown Urine Bacteria (Auto) 1+ /HPF (Negative) 10/21/20 Unknown Urine Mucus Few /HPF 10/21/20 Unknown Microbiology: Microbiology 10/21/20 17:27 Peripheral/Venous Blood Culture - Preliminary Culture in Progress 10/21/20 17:27 Peripheral/Venous Blood Culture - Preliminary Culture in Progress Arreola/IV: Voiding Method Toilet Active Medications - Current Medications Current Medications: Generic Name Dose Route Start Last Admin Trade Name Freq PRN Reason Stop Dose Admin Acetaminophen 650 mg 10/21/20 23:04 Acetaminophen 325 Mg Tab PO Q4H PRN Pain MILD(1-3)/Fever >100.5/HUERTA Amlodipine Besylate 10 mg 10/21/20 22:33 10/21/20 23:05 Amlodipine 10 Mg Tab PO 10 mg QDAY JOSEPH Administration Azithromycin 500 mg 10/22/20 18:00 Azithromycin 250 Mg Tab PO 10/25/20 18:01 QPM JOSEPH Carvedilol 12.5 mg 10/21/20 23:00 10/21/20 23:05 Carvedilol 12.5 Mg Tab PO 12.5 mg BID JOSEPH Administration Hydralazine HCl 50 mg 10/21/20 23:00 10/22/20 05:12 Hydralazine 25 Mg Tab PO 50 mg Q8HR JOSEPH Administration Hydralazine HCl 10 mg 10/21/20 23:06 Hydralazine 20 Mg/1 Ml Inj IV Q3H PRN Blood Pressure Hydromorphone HCl 0.5 mg 10/21/20 23:04 10/22/20 08:44 Hydromorphone 1 Mg/1 Ml Inj IV 0.5 mg Q3H PRN Administration Pain , Severe (7-10) Ceftriaxone Sodium 1 gm in 50 mls @ 100 mls/hr 10/22/20 18:00 Rocephin/Ns 1 Gm/50 Ml IV Q24H [facility] Protocol Lorazepam 2 mg 10/22/20 07:07 Lorazepam 2 Mg/Ml Vial IV Q1H PRN CIWA-Ar 8-15 Lorazepam 4 mg 10/22/20 07:07 Lorazepam 2 Mg/Ml Vial IV Q1H PRN CIWA-Ar 16-25 Nicotine 14 mg 10/22/20 10:00 Nicotine 14 Mg/24 Hr Patch TD QDAY JOSEPH Ondansetron HCl 4 mg 10/21/20 23:04 Ondansetron 4 Mg/2 Ml Inj IV Q8H PRN Nausea And Vomiting Oxycodone/Acetaminophen 1 tab 10/21/20 23:04 10/22/20 05:44 Oxycodone /Acetaminophen 5-325mg Tab PO 1 tab Q6H PRN Administration Pain, Moderate (4-6) Sodium Chloride 10 ml 10/22/20 10:00 Sodium Chloride 0.9% 10 Ml Flush Syringe IV BID JOSEPH Sodium Chloride 10 ml 10/21/20 23:04 Sodium Chloride 0.9% 10 Ml Flush Syringe IV PRN PRN LINE FLUSH Nutrition/Malnutrition Assess - Dietary Evaluation Nutrition/Malnutrition Findings: Nutrition Notes Start: 10/22/20 08 :53 Freq: Status: Active Protocol: Document 10/22/20 08:55 MK (Rec: 10/22/20 08:57 MK [id number]) Nutrition Notes 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 Pt reports no appetite changes or weight loss. Pt ate 100% of breakfast this AM. He reports being medicated for abd pain and feeling okay. Last BM 2 days ago. Nutrition Intervention Revisit per MD consult or patient Sign Off request:
[2020-10-22] MEDS: amLODIPine 10 MG TAB PO SCH (10:00)
[2020-10-22] MEDS: carvediloL 12.5 MG TAB PO SCH ×2 (10:01→21:21)
[2020-10-22] MEDS: NICOTINE 14 MG/24 HR PATCH TD SCH (10:01)
[2020-10-22 10:15] LABS: Calcium 8.1 mg/dL (8.4-10.2)
--- NOTE | 2020-10-22 11:15 | Consultation ---
History of Present Illness Consult date: 10/22/20 Requesting physician: NISHI ALBERT Consult reason: elevated troponin, hypertension History of present illness: This pt is a 29 y/o male with a significant hx of HTN, medical noncompliance. He is previously unknown to our practice. Pt is a Covid PUI. He presents with a complaint of abd pain, and headache x 1-2 weeks. Abd pain is described as intermittent and sharp, beginning in LLQ and radiates to epigastric. Cardiology was consulted for severe HTN, elevated BNP and elevated Troponins. Pt denies any chest pain. Pt reports he was previously diagnosed with HTN several years ago in [place]. He was prescribed medication at that time, but is not compliant and does not know what the medication is. Pt denies any CP, SOB, N/V/D, weakness or syncope. He admits daily use of marijuana, but denies regular use of other illicit drugs. He consumes ETOH regularly 3-4 beers per pay. ECG reviewed: Sinus Tach HR119. Admission BP noted to be 204/158 Lab work significant for Cr 4.2 Past History Past Medical History: hypertension Social history: alcohol abuse, other (Marijuana daily use) Medications and Allergies Allergies Allergy/AdvReac Type Severity Reaction Status Date / Time No Known Allergies Allergy Unverified 10/21/20 15:18 Active Meds: Active Medications Acetaminophen (Acetaminophen 325 Mg Tab) 650 mg PO Q4H PRN PRN Reason: Pain MILD(1-3)/Fever >100.5/HUERTA Amlodipine Besylate (Amlodipine 10 Mg Tab) 10 mg PO QDAY [facility] Last Admin: 10/22/20 10:00 Dose: 10 mg Documented by: Azithromycin (Azithromycin 250 Mg Tab) 500 mg PO QPM [facility] Stop: 10/25/20 18:01 Carvedilol (Carvedilol 12.5 Mg Tab) 12.5 mg PO BID [facility] Last Admin: 10/22/20 10:01 Dose: 12.5 mg Documented by: Hydralazine HCl (Hydralazine 25 Mg Tab) 50 mg PO Q8HR [facility] Last Admin: 10/22/20 05:12 Dose: 50 mg Documented by: Hydralazine HCl (Hydralazine 20 Mg/1 Ml Inj) 10 mg IV Q3H PRN PRN Reason: Blood Pressure Hydromorphone HCl (Hydromorphone 1 Mg/1 Ml Inj) 0.5 mg IV Q3H PRN PRN Reason: Pain , Severe (7-10) Last Admin: 10/22/20 08:44 Dose: 0.5 mg Documented by: Ceftriaxone Sodium (Rocephin/Ns 1 Gm/50 Ml) 1 gm in 50 mls @ 100 mls/hr IV Q24H [facility]; Protocol Lorazepam (Lorazepam 2 Mg/Ml Vial) 2 mg IV Q1H PRN PRN Reason: CIWA-Ar 8-15 Lorazepam (Lorazepam 2 Mg/Ml Vial) 4 mg IV Q1H PRN PRN Reason: CIWA-Ar 16-25 Nicotine (Nicotine 14 Mg/24 Hr Patch) 14 mg TD QDAY [facility] Last Admin: 10/22/20 10:01 Dose: 14 mg Documented by: Ondansetron HCl (Ondansetron 4 Mg/2 Ml Inj) 4 mg IV Q8H PRN PRN Reason: Nausea And Vomiting Oxycodone/Acetaminophen (Oxycodone /Acetaminophen 5-325mg Tab) 1 tab PO Q6H PRN PRN Reason: Pain, Moderate (4-6) Last Admin: 10/22/20 05:44 Dose: 1 tab Documented by: Sodium Chloride (Sodium Chloride 0.9% 10 Ml Flush Syringe) 10 ml IV BID [facility] Last Admin: 10/22/20 10:01 Dose: 10 ml Documented by: Sodium Chloride (Sodium Chloride 0.9% 10 Ml Flush Syringe) 10 ml IV PRN PRN PRN Reason: LINE FLUSH Review of Systems Constitutional: no weight loss, no weight gain, no fever, no chills, no sweats Ears, nose, mouth and throat: no ear pain, no ear discharge, no nasal congestion, no nasal discharge Cardiovascular: no chest pain, no orthopnea, no palpitations, no rapid/irregular heart beat, no edema, no syncope, no lightheadedness, no shortness of breath Respiratory: cough, shortness of breath, no dyspnea on exertion Gastrointestinal: abdominal pain, no nausea, no vomiting, no diarrhea Musculoskeletal: no neck stiffness, no neck pain, no shooting arm pain, no arm numbness/tingling, no low back pain, no shooting leg pain Integumentary: no rash, no pruritis, no redness, no sores, no wounds Neurological: no head injury, no paralysis, no weakness, no parathesias, no numbness, no tingling, no seizures, no syncope Psychiatric: no anxiety Endocrine: no cold intolerance, no heat intolerance Hematologic/Lymphatic: no easy bruising, no easy bleeding Allergic/Immunologic: no urticaria Physical Examination Last Vital Signs Temp 98.1 F 10/22/20 04:34 Pulse 76 10/22/20 05:12 Resp 20 10/22/20 08:44 BP 127/82 10/22/20 05:12 Pulse Ox 96 10/22/20 04:34 HEENT: Positive: PERRL, Normocephaly, Mucus Membranes Moist Neck: Positive: neck supple, trachea midline Cardiac: Positive: Reg Rate and Rhythm, S1/S2 Lungs: Positive: Normal Breath Sounds Neuro: Positive: Grossly Intact Abdomen: Positive: Unremarkable, Soft Skin: Negative: Rash, Wound Musculoskeletal: No Pain Extremities: Present: upper extr. pulses, lower extr. pulses. Absent: edema Results 10/21/20 16:09 10/22/20 09:18 Cardiac Enzymes 10/21/20 10/21/20 10/21/20 Range/Units 16:09 17:45 23:37 AST 36 (5-40) units/L Lactate Dehydrogenase 470 H (91-180) units/L CK-MB (CK-2) 4.6 H (0.0-4.0) ng/mL 10/22/20 Range/Units 07:20 AST (5-40) units/L Lactate Dehydrogenase (91-180) units/L CK-MB (CK-2) 3.2 (0.0-4.0) ng/mL Lipids 10/21/20 Range/Units 19:14 Triglycerides 111 (2-149) mg/dL Cholesterol 132 (50-199) mg/dL HDL Cholesterol 47 (40-59) mg/dL Cholesterol/HDL Ratio 2.80 % CBC 10/21/20 Range/Units 16:09 WBC 10.2 (4.5-11.0) K/mm3 RBC 4.67 (3.65-5.03) M/mm3 Hgb 12.6 (11.8-15.2) gm/dl Hct 39.1 (35.5-45.6) % Plt Count 409 (140-440) K/mm3 Lymph # (Auto) 1.1 L (1.2-5.4) K/mm3 [place] # (Auto) 0.4 (0.0-0.8) K/mm3 Eos # (Auto) 0.1 (0.0-0.4) K/mm3 Baso # (Auto) 0.2 H (0.0-0.1) K/mm3 Comprehensive Metabolic Panel 10/21/20 10/21/20 10/22/20 Range/Units 16:09 17:45 09:18 Sodium 135 L 135 L (137-145) mmol/L Potassium 3.5 L 3.4 L (3.6-5.0) mmol/L Chloride 97.1 L 102.7 (98-107) mmol/L Carbon Dioxide 25 23 (22-30) mmol/L BUN 47 H 50 H (9-20) mg/dL Creatinine 4.2 H 4.4 H (0.8-1.3) mg/dL Glucose 110 H 106 H 187 H (75-100) mg/dL Calcium 9.2 8.1 L (8.4-10.2) mg/dL AST 36 (5-40) units/L ALT 29 (7-56) units/L Alkaline Phosphatase 102 (35-129) units/L Total Protein 5.1 L (6.3-8.2) g/dL Albumin 3.3 L (3.9-5) g/dL - Imaging and Cardiology Echo: pending EKG: report reviewed, image reviewed - EKG Interpretation EKG: sinus rhythm EKG shows: tachycardia EKG interpretations - Telemetry EKG Rhythm: Sinus Rhythm - EKG Sinus rhythms and dysrhythmias: sinus tachycardia Assessment and Plan 29 y/o male with a significant hx of HTN, medical noncompliance. Pt is a Covid PUI. He presents with a complaint of abd pain, and headache x 1-2 weeks. Abd pain is described as intermittent and sharp, beginning in LLQ and radiates to epigastric. Cardiology was consulted for severe HTN, elevated BNP and elevated Troponins. Pt denies any chest pain. CXR reviewed: Suspicious for PNA. Covid test is pending. Pt is currently normotensive. Continue current cardiac regimen. Renal US (10/21/20) reviewed: Atrophy of R kidney. Nephrology is consulted. BNP is elevated on admission. Echo is pending Covid test results. CE elevation appears nonspecific at this time. Continue to trend Karly and f/u ECG in AM. Await nephrology recs. Will follow. This patient was seen in conjunction with Dr Kush Santiago who agrees with this assessment and plan of care. - Patient Problems (1) Hypertensive emergency Current Visit: Yes Status: Acute (2) Elevated troponin Current Visit: Yes Status: Acute (3) Acute kidney injury Current Visit: Yes Status: Acute (4) Pneumonia Current Visit: Yes Status: Acute (5) Medical non-compliance Current Visit: Yes Status: Chronic (6) EtOH dependence Current Visit: Yes Status: Chronic Qualifiers: Substance use status: uncomplicated Qualified Code(s): F10.20 - Alcohol dependence, uncomplicated (7) Marijuana use Current Visit: Yes Status: Chronic
--- NOTE | 2020-10-22 11:42 | Ultrasound Report ---
ULTRASOUND RENAL INDICATION / CLINICAL INFORMATION: GILMAR/chronic kidney disease. COMPARISON: CT abdomen and pelvis dated 10/21/2020. FINDINGS: RIGHT KIDNEY: Length = 8.1 cm. - Echogenicity: Increased echogenicity with loss of cortical medullary differentiation. - Cortical Thickness: Cortical thinning measures 0.9 cm - Hydronephrosis: None. - Cyst or mass: No significant abnormality. - Stones: None seen. LEFT KIDNEY: Length = 10.0 cm. - Echogenicity: Increased echogenicity diffusely - Cortical Thickness: Normal. - Hydronephrosis: None. - Cyst or mass: No significant abnormality. - Stones: None seen. URINARY BLADDER: No significant abnormality. FREE FLUID: Small free fluid noted around the anterior bladder wall. ADDITIONAL FINDINGS: Bilateral pleural effusions are noted. Partially visualized echogenic structures superior to bilateral kidneys likely represent the adrenal glands. IMPRESSION: 1. Atrophy of the right kidney along with increased echogenicity and loss of cortical medullary diffe rentiation bilaterally likely represents acute on chronic medical renal disease. Signer Name: Jason Stephen MD Signed: 10/22/2020 11:38 AM Workstation Name: [id number]
[2020-10-22] MEDS ORDERED: FLU VACC QUAD 2020-2021 (6 months +)/PF 60 0.5 ML SYRINGE IM ONE (12:00)
[2020-10-22] MEDS ORDERED: POTASSIUM CHLORIDE ER 20 MEQ TAB PO NR (15:15)
[2020-10-22] MEDS ORDERED: AZITHROMYCIN/NS 500 MG/250 ML 500 MG/250 ML BAG IV SCH (18:00)
[2020-10-22] MEDS: cefTRIAXone/NS 1 GM/50 ML 1 GM/50 ML BAG IV SCH (18:49)
[2020-10-22] MEDS: AZITHROMYCIN 250 MG TAB PO SCH (18:49)
[2020-10-23] MEDS: hydrALAZINE 25 MG TAB PO SCH ×3 (06:13→21:32)
[2020-10-23 08:03] LABS: Calcium 8.1 mg/dL (8.4-10.2)
--- NOTE | 2020-10-23 08:50 | Progress Note ---
Assessment and Plan Assessment and plan: Sepsis. Present on admission patient meets criteria given the tachycardia, tachypnea and diagnosis of UTI/pneumonia. Acute hypoxic respiratory failure. Etiology secondary to CHF and pneumonia. Acute CHF. Acute renal failure. Etiology secondary to acute kidney injury from sepsis/ATN Pneumonia with parapneumonic effusion. UTI. Accelerated hypertension Elevated troponin. Etiology likely secondary to sepsis from type II NE and renal insufficiency. EtOH dependence. Nicotine dependence. 10/22/2020. CT of the abdomen pelvis showed no evidence of hydronephrosis or calculi. Renal ultrasound pending. Nephrology consulted for acute renal failure. Continue IV antibiotics of Rocephin and azithromycin for pneumonia and UTI. Follow-up blood and urine cultures. Covid testing pending. Follow-up echocardiogram. Cardiology consultation pending. 10/23/2020. Covid testing from 10/21 is negative. Renal ultrasound revealed atrophy of right kidney. Nephrology following. Echocardiogram pending for diagnosis of CHF/elevated BNP. Continue to trend cardiac isoenzymes. Continue IV antibiotics for UTI. Blood cultures remain negative. History Interval history: No new issues overnight. Hospitalist Physical - Constitutional Vitals: Temp Pulse Resp BP Pulse Ox 98.2 F 94 H 20 148/98 92 10/23/20 05:35 10/23/20 06:13 10/23/20 05:35 10/23/20 06:13 10/23/20 05:35 General appearance: Present: mild distress, well-nourished - EENT Eyes: Present: PERRL, EOM intact ENT: hearing intact, clear oral mucosa, dentition normal - Neck Neck: Present: supple, normal ROM - Respiratory Respiratory effort: normal Respiratory: bilateral: CTA - Cardiovascular Rhythm: regular Heart Sounds: Present: S1 & S2. Absent: gallop, rub - Extremities Extremities: no ischemia, No edema, Full ROM - Abdominal General gastrointestinal: soft, non-tender, non-distended, normal bowel sounds - Integumentary Integumentary: Present: clear, warm, dry - Neurologic Neurologic: CNII-XII intact, moves all extremities HEART Score - HEART Score Age: < 45 Risk factors: 1-2 risk factors Troponin: Troponin T 0.090 ng/mL (0.00-0.029) H 10/23/20 07:15 - Critical Actions Critical Actions: 4-6 pts:12-16.6% risk of adverse cardiac event. Should be admitted Results - Labs CBC & Chem 7: 10/21/20 16:09 10/23/20 07:15 Labs: Laboratory Last Values WBC 10.2 K/mm3 (4.5-11.0) 10/21/20 16:09 RBC 4.67 M/mm3 (3.65-5.03) 10/21/20 16:09 Hgb 12.6 gm/dl (11.8-15.2) 10/21/20 16:09 Hct 39.1 % (35.5-45.6) 10/21/20 16:09 MCV 84 fl (84-94) 10/21/20 16:09 MCH 27 pg (28-32) L 10/21/20 16:09 MCHC 32 % (32-34) 10/21/20 16:09 RDW 15.6 % (13.2-15.2) H 10/21/20 16:09 Plt Count 409 K/mm3 (140-440) 10/21/20 16:09 Lymph % (Auto) 11.0 % (13.4-35.0) L 10/21/20 16:09 [place] % (Auto) 4.3 % (0.0-7.3) 10/21/20 16:09 Eos % (Auto) 1.1 % (0.0-4.3) 10/21/20 16:09 Baso % (Auto) 1.5 % (0.0-1.8) 10/21/20 16:09 Lymph # (Auto) 1.1 K/mm3 (1.2-5.4) L 10/21/20 16:09 [place] # (Auto) 0.4 K/mm3 (0.0-0.8) 10/21/20 16:09 Eos # (Auto) 0.1 K/mm3 (0.0-0.4) 10/21/20 16:09 Baso # (Auto) 0.2 K/mm3 (0.0-0.1) H 10/21/20 16:09 Seg Neutrophils % 82.1 % (40.0-70.0) H 10/21/20 16:09 Seg Neutrophils # 8.4 K/mm3 (1.8-7.7) H 10/21/20 16:09 D-Dimer 969.83 ng/mlDDU (0-234) H 10/21/20 17:40 Sodium 128 mmol/L (137-145) L D 10/23/20 07:15 Potassium 3.4 mmol/L (3.6-5.0) L 10/23/20 07:15 Chloride 96.4 mmol/L (98-107) L 10/23/20 07:15 Carbon Dioxide 19 mmol/L (22-30) L 10/23/20 07:15 Anion Gap 16 mmol/L 10/23/20 07:15 BUN 50 mg/dL (9-20) H 10/23/20 07:15 Creatinine 4.7 mg/dL (0.8-1.3) H 10/23/20 07:15 Estimated GFR 18 ml/min 10/23/20 07:15 BUN/Creatinine Ratio 11 % 10/23/20 07:15 Glucose 148 mg/dL (75-100) H 10/23/20 07:15 Lactic Acid 1.00 mmol/L (0.7-2.0) 10/21/20 17:27 Calcium 8.1 mg/dL (8.4-10.2) L 10/23/20 07:15 Phosphorus 5.20 mg/dL (2.5-4.5) H 10/22/20 07:20 Magnesium 1.70 mg/dL (1.7-2.3) 10/22/20 07:20 Ferritin 71.8 ng/mL (30.0-300.0) 10/21/20 17:45 Total Bilirubin 0.50 mg/dL (0.1-1.2) 10/21/20 16:09 AST 36 units/L (5-40) 10/21/20 16:09 ALT 29 units/L (7-56) 10/21/20 16:09 Alkaline Phosphatase 102 units/L (35-129) 10/21/20 16:09 Ammonia 28.0 umol/L (25-60) 10/22/20 07:20 Lactate Dehydrogenase 470 units/L (91-180) H 10/21/20 17:45 Total Creatine Kinase 92 units/L (55-170) 10/22/20 12:17 CK-MB (CK-2) 3.0 ng/mL (0.0-4.0) 10/22/20 12:17 CK-MB (CK-2) Rel Index 3.2 (0-4) 10/22/20 12:17 Troponin T 0.090 ng/mL (0.00-0.029) H 10/23/20 07:15 C-Reactive Protein 0.60 mg/dL (0.00-1.30) 10/21/20 17:45 NT-Pro-B Natriuret Pep 11552 pg/mL (0-450) H 10/21/20 17:27 Total Protein 5.1 g/dL (6.3-8.2) L 10/21/20 16:09 Albumin 3.3 g/dL (3.9-5) L 10/21/20 16:09 Albumin/Globulin Ratio 1.8 % 10/21/20 16:09 Triglycerides 111 mg/dL (2-149) 10/21/20 19:14 Cholesterol 132 mg/dL (50-199) 10/21/20 19:14 LDL Cholesterol Direct 73 mg/dL (50-130) 10/21/20 19:14 HDL Cholesterol 47 mg/dL (40-59) 10/21/20 19:14 Cholesterol/HDL Ratio 2.80 % 10/21/20 19:14 Lipase 34 units/L (13-60) 10/21/20 16:09 Procalcitonin 0.13 ng/mL (<0.15) 10/21/20 17:40 PTH Intact 254.0 pg/mL (15-65) H 10/22/20 09:18 Urine Color Yellow (Yellow) 10/21/20 Unknown Urine Turbidity Clear (Clear) 10/21/20 Unknown Urine pH 5.0 (5.0-7.0) 10/21/20 Unknown Ur Specific [place] 1.017 (1.003-1.030) 10/21/20 Unknown Urine Protein 100 mg/dl mg/dL (Negative) 10/21/20 Unknown Urine Glucose (UA) Neg mg/dL (Negative) 10/21/20 Unknown Urine Ketones Neg mg/dL (Negative) 10/21/20 Unknown Urine Blood Sm (Negative) 10/21/20 Unknown Urine Nitrite Neg (Negative) 10/21/20 Unknown Urine Bilirubin Neg (Negative) 10/21/20 Unknown Urine Urobilinogen < 2.0 mg/dL (<2.0) 10/21/20 Unknown Ur Leukocyte Esterase Mod (Negative) 10/21/20 Unknown Urine WBC (Auto) 37.0 /HPF (0.0-6.0) H 10/21/20 Unknown Urine RBC (Auto) 2.0 /HPF (0.0-6.0) 10/21/20 Unknown U Epithel Cells (Auto) 2.0 /HPF (0-13.0) 10/21/20 Unknown Urine Bacteria (Auto) 1+ /HPF (Negative) 10/21/20 Unknown Urine Mucus Few /HPF 10/21/20 Unknown Coronavirus (PCR) Negative (Negative) 10/21/20 09:00 Microbiology: Microbiology 10/21/20 17:27 Peripheral/Venous Blood Culture - Preliminary NO GROWTH AFTER 24 HOURS 10/21/20 17:27 Peripheral/Venous Blood Culture - Preliminary NO GROWTH AFTER 24 HOURS Arreola/IV: Voiding Method Toilet Active Medications - Current Medications Current Medications: Generic Name Dose Route Start Last Admin Trade Name Freq PRN Reason Stop Dose Admin Acetaminophen 650 mg 10/21/20 23:04 Acetaminophen 325 Mg Tab PO Q4H PRN Pain MILD(1-3)/Fever >100.5/HUERTA Amlodipine Besylate 10 mg 10/21/20 22:33 10/22/20 10:00 Amlodipine 10 Mg Tab PO 10 mg QDAY JOSEPH Administration Azithromycin 500 mg 10/22/20 18:00 10/22/20 18:49 Azithromycin 250 Mg Tab PO 10/25/20 18:01 500 mg QPM JOSEPH Administration Carvedilol 12.5 mg 10/21/20 23:00 10/22/20 21:21 Carvedilol 12.5 Mg Tab PO 12.5 mg BID JOSEPH Administration Hydralazine HCl 50 mg 10/21/20 23:00 10/23/20 06:13 Hydralazine 25 Mg Tab PO 50 mg Q8HR JOSEPH Administration Hydralazine HCl 10 mg 10/21/20 23:06 Hydralazine 20 Mg/1 Ml Inj IV Q3H PRN Blood Pressure Hydromorphone HCl 0.5 mg 10/21/20 23:04 10/22/20 08:44 Hydromorphone 1 Mg/1 Ml Inj IV 0.5 mg Q3H PRN Administration Pain , Severe (7-10) Ceftriaxone Sodium 1 gm in 50 mls @ 100 mls/hr 10/22/20 18:00 10/22/20 18:49 Rocephin/Ns 1 Gm/50 Ml IV 100 mls/hr Q24H JOSEPH Administration Protocol Lorazepam 2 mg 10/22/20 07:07 Lorazepam 2 Mg/Ml Vial IV Q1H PRN CIWA-Ar 8-15 Lorazepam 4 mg 10/22/20 07:07 Lorazepam 2 Mg/Ml Vial IV Q1H PRN CIWA-Ar 16-25 Nicotine 14 mg 10/22/20 10:00 10/22/20 10:01 Nicotine 14 Mg/24 Hr Patch TD 14 mg QDAY JOSEPH Administration Ondansetron HCl 4 mg 10/21/20 23:04 Ondansetron 4 Mg/2 Ml Inj IV Q8H PRN Nausea And Vomiting Oxycodone/Acetaminophen 1 tab 10/21/20 23:04 10/22/20 21:20 Oxycodone /Acetaminophen 5-325mg Tab PO 1 tab Q6H PRN Administration Pain, Moderate (4-6) Sodium Chloride 10 ml 10/22/20 10:00 10/22/20 21:21 Sodium Chloride 0.9% 10 Ml Flush Syringe IV 10 ml BID JOSEPH Administration Sodium Chloride 10 ml 10/21/20 23:04 Sodium Chloride 0.9% 10 Ml Flush Syringe IV PRN PRN LINE FLUSH Nutrition/Malnutrition Assess - Dietary Evaluation Nutrition/Malnutrition Findings: Nutrition Notes Start: 10/22/20 08:53 Freq: Status: Active Protocol: Document 10/22/20 08:55 (Rec: 10/22/20 08:57 [email or web address]) Nutrition Notes 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 Pt reports no appetite changes or weight loss. Pt ate 100% of breakfast this AM. He reports being medicated for abd pain and feeling okay. Last BM 2 days ago. Nutrition Intervention Revisit per MD consult or patient Sign Off request:
--- NOTE | 2020-10-23 10:23 | Progress Note ---
Assessment and Plan COVID-19 testing is negative. Cont IV abx in setting of PNA and UTI. tte reviewed - EF 20-25%, LV mildly dilated, mild LVH, restrictive physiology. No known prior cardiac history. No current clinical evidence of acutely decompensated HF. Cont coreg. No ACEI/ARB at this time in setting of renal insufficiency. Suspect newly diagnosed CMP is secondary to uncontrolled BP and ETOH use. Will plan for ischemic evaluation to r/o ICMP once medically stabilized - can be done as OP. CE elevation appears nonspecific at this time. Await nephrology recs. The patient has been seen in conjunction with Dr Mary Santiago who agrees with the assessment and plan of care. - Patient Problems (1) Hypertensive emergency Current Visit: Yes Status: Acute (2) Elevated troponin Current Visit: Yes Status: Acute (3) Acute kidney injury Current Visit: Yes Status: Acute (4) Pneumonia Current Visit: Yes Status: Acute (5) Medical non-compliance Current Visit: Yes Status: Chronic (6) EtOH dependence Current Visit: Yes Status: Chronic Qualifiers: Substance use status: uncomplicated Qualified Code(s): F10.20 - Alcohol dependence, uncomplicated (7) Marijuana use Current Visit: Yes Status: Chronic (8) Cardiomyopathy Current Visit: Yes Status: Chronic (9) Hyponatremia Current Visit: Yes Status: Acute Subjective Date of service: 10/23/20 Principal diagnosis: HTN Interval history: pt resting in bed, feeling better. tele reviewed - in SR HR 90s, no acute events overnight. Objective Last Vital Signs Temp 98.2 F 10/23/20 05:35 Pulse 94 H 10/23/20 06:13 Resp 20 10/23/20 05:35 BP 148/98 10/23/20 06:13 Pulse Ox 92 10/23/20 05:35 - Physical Examination General: No Apparent Distress HEENT: Positive: PERRL, Normocephaly, Mucus Membranes Moist Neck: Positive: neck supple, trachea midline Cardiac: Positive: Reg Rate and Rhythm, S1/S2 Lungs: Positive: Decreased Breath Sounds Neuro: Positive: Grossly Intact Abdomen: Positive: Unremarkable, Soft Skin: Negative: Rash, Wound Musculoskeletal: No Pain Extremities: Present: upper extr. pulses, lower extr. pulses. Absent: edema - Labs and Meds Cardiac Enzymes 10/22/20 Range/Units 12:17 CK-MB (CK-2) 3.0 (0.0-4.0) ng/mL Comprehensive Metabolic Panel 10/22/20 10/23/20 Range/Units 09:18 07:15 Sodium 135 L 128 L D (137-145) mmol/L Potassium 3.4 L 3.4 L (3.6-5.0) mmol/L Chloride 102.7 96.4 L (98-107) mmol/L Carbon Dioxide 23 19 L (22-30) mmol/L BUN 50 H 50 H (9-20) mg/dL Creatinine 4.4 H 4.7 H (0.8-1.3) mg/dL Glucose 187 H 148 H (75-100) mg/dL Calcium 8.1 L 8.1 L (8.4-10.2) mg/dL - Imaging and Cardiology EKG: report reviewed, image reviewed Echo: pending - Telemetry EKG Rhythm: Sinus Rhythm - EKG Sinus rhythms and dysrhythmias: sinus tachycardia
[2020-10-23] MEDS: carvediloL 12.5 MG TAB PO SCH (10:59)
[2020-10-23] MEDS: amLODIPine 10 MG TAB PO SCH (10:59)
[2020-10-23] MEDS ORDERED: POTASSIUM CHLORIDE ER 20 MEQ TAB PO NR (11:00)
[2020-10-23] MEDS: NICOTINE 14 MG/24 HR PATCH TD SCH (11:00)
[2020-10-23] MEDS: oxyCODONE /ACETAMINOPHEN 5-325MG TAB PO PRN ×2 (11:00→20:45)
[2020-10-23] MEDS: SODIUM BICARBONATE 650 MG TAB PO SCH ×2 (11:16→20:45)
--- NOTE | 2020-10-23 14:05 | Progress Note ---
Assessment and Plan 1. Acute kidney injury: GILMAR superimposed on CKD stage 4. Renal US showed atrophic R kidney and negative for hydro. Most likely advanced CKD in the setting of poorly controlled HTN. Monitor renal function. Renal prognosis is guarded. Avoid nephrotoxic agents. Meds dosage based on GFR. 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 2. FEN: Hypokalemia, replete K, monitor. Hyponatremia, limit fluid intake, monitor. PO Sodium bicarbonate. Monitor lytes and volume status. 3. Acute hypoxic respiratory failure, POA: 2/2 PNA and CHF. COVID test negative. On RA. 4. Sepsis, POA: 2/2 PNA vs UTI. Abx. Cultures negative so far. 5. Elevated Troponins: Pt denies any chest pain. Non-specific per Cards. Followed by Cards. 6. Acute CHF: LVEF 20-25%. 7. UTI: On abx. 8. Accelerated hypertension: BP is improving. Coreg increased to 25 mg BID. Monitor. 9. EtOH and Nicotine dependence: Counseled. Subjective: Patient was seen and examined at the bedside. Objective: General appearance: well-developed, appears stated age, no distress noted HEENT: ATNC, CARLOS Neck: trachea midline Respiratory: ctab Heart: regular, S1S2, no murmur Gastrointestinal: soft, normoactive bowel sounds, not tender Integumentary: no rash, warm and dry Ext: no edema Neurologic: AO, non-focal Musculoskeletal: no obvious deformity Subjective Date of service: 10/23/20 Principal diagnosis: HTN Objective - Vital Signs Vital signs: Vital Signs - 12hr 10/23/20 10/23/20 10/23/20 05:35 06:13 10:59 Temperature 98.2 F Pulse Rate 94 H 94 H 94 H Respiratory 20 Rate Blood Pressure 148/98 148/98 O2 Sat by Pulse 92 Oximetry 10/23/20 11:00 Temperature Pulse Rate Respiratory 20 Rate Blood Pressure O2 Sat by Pulse Oximetry - Lab 10/21/20 16:09 10/23/20 07:15 Most recent lab results Calcium 8.1 mg/dL (8.4-10.2) L 10/23/20 07:15 Phosphorus 5.20 mg/dL (2.5-4.5) H 10/22/20 07:20 Magnesium 1.70 mg/dL (1.7-2.3) 10/22/20 07:20 Medications & Allergies - Medications Allergies/Adverse Reactions: Allergies No Known Allergies Allergy (Unverified 10/21/20 15:18) Active Medications: Generic Name Dose Route Start Last Admin Trade Name Freq PRN Reason Stop Dose Admin Acetaminophen 650 mg 10/21/20 23:04 Acetaminophen 325 Mg Tab PO Q4H PRN Pain MILD(1-3)/Fever >100.5/HUERTA Amlodipine Besylate 10 mg 10/21/20 22:33 10/23/20 10:59 Amlodipine 10 Mg Tab PO 10 mg QDAY JOSEPH Administration Azithromycin 500 mg 10/22/20 18:00 10/22/20 18:49 Azithromycin 250 Mg Tab PO 10/25/20 18:01 500 mg QPM JOSEPH Administration Carvedilol 12.5 mg 10/21/20 23:00 10/23/20 10:59 Carvedilol 12.5 Mg Tab PO 12.5 mg BID JOSEPH Administration Hydralazine HCl 50 mg 10/21/20 23:00 10/23/20 06:13 Hydralazine 25 Mg Tab PO 50 mg Q8HR JOSEPH Administration Hydralazine HCl 10 mg 10/21/20 23:06 Hydralazine 20 Mg/1 Ml Inj IV Q3H PRN Blood Pressure Hydromorphone HCl 0.5 mg 10/21/20 23:04 10/22/20 08:44 Hydromorphone 1 Mg/1 Ml Inj IV 0.5 mg Q3H PRN Administration Pain , Severe (7-10) Ceftriaxone Sodium 1 gm in 50 mls @ 100 mls/hr 10/22/20 18:00 10/22/20 18:49 Rocephin/Ns 1 Gm/50 Ml IV 100 mls/hr Q24H JOSEPH Administration Protocol Lorazepam 2 mg 10/22/20 07:07 Lorazepam 2 Mg/Ml Vial IV Q1H PRN CIWA-Ar 8-15 Lorazepam 4 mg 10/22/20 07:07 Lorazepam 2 Mg/Ml Vial IV Q1H PRN CIWA-Ar 16-25 Nicotine 14 mg 10/22/20 10:00 10/23/20 11:00 Nicotine 14 Mg/24 Hr Patch TD 14 mg QDAY JOSEPH Administration Ondansetron HCl 4 mg 10/21/20 23:04 Ondansetron 4 Mg/2 Ml Inj IV Q8H PRN Nausea And Vomiting Oxycodone/Acetaminophen 1 tab 10/21/20 23:04 10/23/20 11:00 Oxycodone /Acetaminophen 5-325mg Tab PO 1 tab Q6H PRN Administration Pain, Moderate (4-6) Sodium Bicarbonate 1,300 mg 10/23/20 12:00 10/23/20 11:16 Sodium Bicarbonate 650 Mg Tab PO 1,300 mg TID JOSEPH Administration Sodium Chloride 10 ml 10/22/20 10:00 10/23/20 11:01 Sodium Chloride 0.9% 10 Ml Flush Syringe IV 10 ml BID JOSEPH Administration Sodium Chloride 10 ml 10/21/20 23:04 Sodium Chloride 0.9% 10 Ml Flush Syringe IV PRN PRN LINE FLUSH
[2020-10-23] MEDS: AZITHROMYCIN 250 MG TAB PO SCH (18:00)
[2020-10-23] MEDS: cefTRIAXone/NS 1 GM/50 ML 1 GM/50 ML BAG IV SCH (18:01)
[2020-10-23] MEDS: carvediloL 25 MG TAB PO SCH ×2 (18:01→21:32)
[2020-10-24 06:43] LABS: Calcium 8.4 mg/dL (8.4-10.2)
[2020-10-24] MEDS: hydrALAZINE 25 MG TAB PO SCH ×2 (06:49→14:02)
[2020-10-24] MEDS: SODIUM BICARBONATE 650 MG TAB PO SCH ×2 (08:00→14:02)
--- NOTE | 2020-10-24 09:26 | Progress Note ---
Assessment and Plan Assessment and plan: Sepsis. Present on admission patient meets criteria given the tachycardia, tachypnea and diagnosis of UTI/pneumonia. Acute hypoxic respiratory failure. Etiology secondary to CHF and pneumonia. Acute systolic heart failure. EF 20-25% GILMAR superimposed on CKD stage 4. Etiology secondary to acute kidney injury from sepsis/ATN Pneumonia with parapneumonic effusion. UTI. Accelerated hypertension Elevated troponin. Etiology likely secondary to sepsis from type II MT and renal insufficiency. EtOH dependence. Nicotine dependence. 10/22/2020. CT of the abdomen pelvis showed no evidence of hydronephrosis or calculi. Renal ultrasound pending. Nephrology consulted for acute renal failure. Continue IV antibiotics of Rocephin and azithromycin for pneumonia and UTI. Follow-up blood and urine cultures. Covid testing pending. Follow-up echocardiogram. Cardiology consultation pending. 10/23/2020. Covid testing from 10/21 is negative. Renal ultrasound revealed atrophy of right kidney. Nephrology following. Echocardiogram pending for diagnosis of CHF/elevated BNP. Continue to trend cardiac isoenzymes. Continue IV antibiotics for UTI. Blood cultures remain negative. 10/24/2020. Nephrology reports GILMAR superimposed on CKD stage 4. Most likely advanced CKD in the setting of poorly controlled HTN. Echocardiogram revealed EF 20-25%, LV mildly dilated, mild LVH, restrictive physiology. Cardiology plans for outpatient ischemic evaluation. Patient likely has newly diagnosed cardiomyopathy due to uncontrolled BP and EtOH abuse. History Interval history: No new issues overnight. Hospitalist Physical - Constitutional Vitals: Temp Pulse Resp BP Pulse Ox 99.2 F 90 20 146/102 97 10/24/20 05:47 10/24/20 05:47 10/24/20 05:47 10/24/20 05:47 10/24/20 05:47 General appearance: Present: no acute distress, well-nourished - EENT Eyes: Present: PERRL, EOM intact ENT: hearing intact, clear oral mucosa, dentition normal - Neck Neck: Present: supple, normal ROM - Respiratory Respiratory effort: normal Respiratory: bilateral: CTA - Cardiovascular Rhythm: regular Heart Sounds: Present: S1 & S2. Absent: gallop, rub - Extremities Extremities: no ischemia, No edema, Full ROM - Abdominal General gastrointestinal: soft, non-tender, non-distended, normal bowel sounds - Integumentary Integumentary: Present: clear, warm, dry - Neurologic Neurologic: CNII-XII intact, moves all extremities HEART Score - HEART Score Age: < 45 Risk factors: 1-2 risk factors Troponin: Troponin T 0.090 ng/mL (0.00-0.029) H 10/23/20 07:15 - Critical Actions Critical Actions: 4-6 pts:12-16.6% risk of adverse cardiac event. Should be admitted Results - Labs CBC & Chem 7: 10/21/20 16:09 10/24/20 05:19 Labs: Laboratory Last Values WBC 10.2 K/mm3 (4.5-11.0) 10/21/20 16:09 RBC 4.67 M/mm3 (3.65-5.03) 10/21/20 16:09 Hgb 12.6 gm/dl (11.8-15.2) 10/21/20 16:09 Hct 39.1 % (35.5-45.6) 10/21/20 16:09 MCV 84 fl (84-94) 10/21/20 16:09 MCH 27 pg (28-32) L 10/21/20 16:09 MCHC 32 % (32-34) 10/21/20 16:09 RDW 15.6 % (13.2-15.2) H 10/21/20 16:09 Plt Count 409 K/mm3 (140-440) 10/21/20 16:09 Lymph % (Auto) 11.0 % (13.4-35.0) L 10/21/20 16:09 Bradley % (Auto) 4.3 % (0.0-7.3) 10/21/20 16:09 Eos % (Auto) 1.1 % (0.0-4.3) 10/21/20 16:09 Baso % (Auto) 1.5 % (0.0-1.8) 10/21/20 16:09 Lymph # (Auto) 1.1 K/mm3 (1.2-5.4) L 10/21/20 16:09 Bradley # (Auto) 0.4 K/mm3 (0.0-0.8) 10/21/20 16:09 Eos # (Auto) 0.1 K/mm3 (0.0-0.4) 10/21/20 16:09 Baso # (Auto) 0.2 K/mm3 (0.0-0.1) H 10/21/20 16:09 Seg Neutrophils % 82.1 % (40.0-70.0) H 10/21/20 16:09 Seg Neutrophils # 8.4 K/mm3 (1.8-7.7) H 10/21/20 16:09 D-Dimer 969.83 ng/mlDDU (0-234) H 10/21/20 17:40 Sodium 136 mmol/L (137-145) L D 10/24/20 05:19 Potassium 3.8 mmol/L (3.6-5.0) 10/24/20 05:19 Chloride 101.9 mmol/L (98-107) 10/24/20 05:19 Carbon Dioxide 25 mmol/L (22-30) 10/24/20 05:19 Anion Gap 13 mmol/L 10/24/20 05:19 BUN 48 mg/dL (9-20) H 10/24/20 05:19 Creatinine 4.4 mg/dL (0.8-1.3) H 10/24/20 05:19 Estimated GFR 19 ml/min 10/24/20 05:19 BUN/Creatinine Ratio 11 % 10/24/20 05:19 Glucose 99 mg/dL (75-100) 10/24/20 05:19 Lactic Acid 1.00 mmol/L (0.7-2.0) 10/21/20 17:27 Calcium 8.4 mg/dL (8.4-10.2) 10/24/20 05:19 Phosphorus 5.20 mg/dL (2.5-4.5) H 10/22/20 07:20 Magnesium 1.70 mg/dL (1.7-2.3) 10/22/20 07:20 Ferritin 71.8 ng/mL (30.0-300.0) 10/21/20 17:45 Total Bilirubin 0.50 mg/dL (0.1-1.2) 10/21/20 16:09 AST 36 units/L (5-40) 10/21/20 16:09 ALT 29 units/L (7-56) 10/21/20 16:09 Alkaline Phosphatase 102 units/L (35-129) 10/21/20 16:09 Ammonia 28.0 umol/L (25-60) 10/22/20 07:20 Lactate Dehydrogenase 470 units/L (91-180) H 10/21/20 17:45 Total Creatine Kinase 92 units/L (55-170) 10/22/20 12:17 CK-MB (CK-2) 3.0 ng/mL (0.0-4.0) 10/22/20 12:17 CK-MB (CK-2) Rel Index 3.2 (0-4) 10/22/20 12:17 Troponin T 0.090 ng/mL (0.00-0.029) H 10/23/20 07:15 C-Reactive Protein 0.60 mg/dL (0.00-1.30) 10/21/20 17:45 NT-Pro-B Natriuret Pep 43460 pg/mL (0-450) H 10/21/20 17:27 Total Protein 5.1 g/dL (6.3-8.2) L 10/21/20 16:09 Albumin 3.3 g/dL (3.9-5) L 10/21/20 16:09 Albumin/Globulin Ratio 1.8 % 10/21/20 16:09 Triglycerides 111 mg/dL (2-149) 10/21/20 19:14 Cholesterol 132 mg/dL (50-199) 10/21/20 19:14 LDL Cholesterol Direct 73 mg/dL (50-130) 10/21/20 19:14 HDL Cholesterol 47 mg/dL (40-59) 10/21/20 19:14 Cholesterol/HDL Ratio 2.80 % 10/21/20 19:14 Lipase 34 units/L (13-60) 10/21/20 16:09 Procalcitonin 0.13 ng/mL (<0.15) 10/21/20 17:40 PTH Intact 254.0 pg/mL (15-65) H 10/22/20 09:18 Urine Color Yellow (Yellow) 10/21/20 Unknown Urine Turbidity Clear (Clear) 10/21/20 Unknown Urine pH 5.0 (5.0-7.0) 10/21/20 Unknown Ur Specific [place] 1.017 (1.003-1.030) 10/21/20 Unknown Urine Protein 100 mg/dl mg/dL (Negative) 10/21/20 Unknown Urine Glucose (UA) Neg mg/dL (Negative) 10/21/20 Unknown Urine Ketones Neg mg/dL (Negative) 10/21/20 Unknown Urine Blood Sm (Negative) 10/21/20 Unknown Urine Nitrite Neg (Negative) 10/21/20 Unknown Urine Bilirubin Neg (Negative) 10/21/20 Unknown Urine Urobilinogen < 2.0 mg/dL (<2.0) 10/21/20 Unknown Ur Leukocyte Esterase Mod (Negative) 10/21/20 Unknown Urine WBC (Auto) 37.0 /HPF (0.0-6.0) H 10/21/20 Unknown Urine RBC (Auto) 2.0 /HPF (0.0-6.0) 10/21/20 Unknown U Epithel Cells (Auto) 2.0 /HPF (0-13.0) 10/21/20 Unknown Urine Bacteria (Auto) 1+ /HPF (Negative) 10/21/20 Unknown Urine Mucus Few /HPF 10/21/20 Unknown Coronavirus (PCR) Negative (Negative) 10/21/20 09:00 Microbiology: Microbiology 10/21/20 17:27 Peripheral/Venous Blood Culture - Preliminary NO GROWTH AFTER 48 HOURS 10/21/20 17:27 Peripheral/Venous Blood Culture - Preliminary NO GROWTH AFTER 48 HOURS 10/21/20 Unknown Urine,Clean Catch Urine Culture - Final Arreola/IV: Voiding Method Toilet Active Medications - Current Medications Current Medications: Generic Name Dose Route Start Last Admin Trade Name Freq PRN Reason Stop Dose Admin Acetaminophen 650 mg 10/21/20 23:04 Acetaminophen 325 Mg Tab PO Q4H PRN Pain MILD(1-3)/Fever >100.5/HUERTA Amlodipine Besylate 10 mg 10/21/20 22:33 10/23/20 10:59 Amlodipine 10 Mg Tab PO 10 mg QDAY JOESPH Administration Azithromycin 500 mg 10/22/20 18:00 10/23/20 18:00 Azithromycin 250 Mg Tab PO 10/25/20 18:01 500 mg QPM JOSEPH Administration Carvedilol 25 mg 10/23/20 17:00 10/23/20 21:32 Carvedilol 25 Mg Tab PO 25 mg BID JOSEPH Administration Hydralazine HCl 50 mg 10/21/20 23:00 10/24/20 06:49 Hydralazine 25 Mg Tab PO 50 mg Q8HR JOSEPH Administration Hydralazine HCl 10 mg 10/21/20 23:06 Hydralazine 20 Mg/1 Ml Inj IV Q3H PRN Blood Pressure Hydromorphone HCl 0.5 mg 10/21/20 23:04 10/22/20 08:44 Hydromorphone 1 Mg/1 Ml Inj IV 0.5 mg Q3H PRN Administration Pain , Severe (7-10) Ceftriaxone Sodium 1 gm in 50 mls @ 100 mls/hr 10/22/20 18:00 10/23/20 18:01 Rocephin/Ns 1 Gm/50 Ml IV 100 mls/hr Q24H JOSEPH Administration Protocol Lorazepam 2 mg 10/22/20 07:07 Lorazepam 2 Mg/Ml Vial IV Q1H PRN CIWA-Ar 8-15 Lorazepam 4 mg 10/22/20 07:07 Lorazepam 2 Mg/Ml Vial IV Q1H PRN CIWA-Ar 16-25 Nicotine 14 mg 10/22/20 10:00 10/23/20 11:00 Nicotine 14 Mg/24 Hr Patch TD 14 mg QDAY JOSEPH Administration Ondansetron HCl 4 mg 10/21/20 23:04 Ondansetron 4 Mg/2 Ml Inj IV Q8H PRN Nausea And Vomiting Oxycodone/Acetaminophen 1 tab 10/21/20 23:04 10/23/20 20:45 Oxycodone /Acetaminophen 5-325mg Tab PO 1 tab Q6H PRN Administration Pain, Moderate (4-6) Sodium Bicarbonate 1,300 mg 10/23/20 12:00 10/23/20 20:45 Sodium Bicarbonate 650 Mg Tab PO 1,300 mg TID JOSEPH Administration Sodium Chloride 10 ml 10/22/20 10:00 10/23/20 21:33 Sodium Chloride 0.9% 10 Ml Flush Syringe IV 10 ml BID JOSEPH Administration Sodium Chloride 10 ml 10/21/20 23:04 Sodium Chloride 0.9% 10 Ml Flush Syringe IV PRN PRN LINE FLUSH Nutrition/Malnutrition Assess - Dietary Evaluation Nutrition/Malnutrition Findings: Nutrition Notes Start: 10/22/20 08:53 Freq: Status: Active Protocol: Document 10/22/20 08:55 MK (Rec: 10/22/20 08:57 MK [id number]) Nutrition Notes 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 Pt reports no appetite changes or weight loss. Pt ate 100% of breakfast this AM. He reports being medicated for abd pain and feeling okay. Last BM 2 days ago. Nutrition Intervention Revisit per MD consult or patient Sign Off request:
[2020-10-24] MEDS: carvediloL 25 MG TAB PO SCH (09:38)
[2020-10-24] MEDS: amLODIPine 10 MG TAB PO SCH (09:38)
[2020-10-24] MEDS: NICOTINE 14 MG/24 HR PATCH TD SCH (10:09)
[2020-10-24 10:11] LABS: Basophils # (Auto) 0.1 K/mm3 (0.0-0.1); Basophils % (Auto) 2.2 % (0.0-1.8); Eosinophils # (Auto) 0.1 K/mm3 (0.0-0.4); Hematocrit 32.7 % (35.5-45.6); Hemoglobin 10.4 gm/dl (11.8-15.2); Lymphocytes # (Auto) 1.1 K/mm3 (1.2-5.4); Lymphocytes % (Auto) 25.1 % (13.4-35.0); Mean Corpuscular HGB Conc 32 % (32-34); Mean Corpuscular Volume 84 fl (84-94); Monocytes # (Auto) 0.6 K/mm3 (0.0-0.8); Platelet Count 316 K/mm3 (140-440); Red Cell Distribution Width 15.9 % (13.2-15.2)
--- NOTE | 2020-10-24 10:39 | Discharge Summary ---
Providers - Providers Date of Admission: 10/21/20 17:41 Date of discharge: 10/24/20 Attending physician: MARCIN KINCAID 10/21/20 22:56 Consult to Physician [CONS] Routine Comment: Consulting Provider: NALINI ELDER Physician Instructions: Reason For Exam: GILMAR/CKD 10/22/20 07:03 Consult to Physician [CONS] Routine Comment: Consulting Provider: DELMY HOLDER Physician Instructions: Reason For Exam: CHF and uncontrolled hypertension Primary care physician: [employer] Hospitalization Reason for admission: CHF exacerbation, acute kidney injury on chronic kidney disease, UTI, laura Condition: Stable Hospital course: This pt is a 29 y/o male with a significant hx of HTN, medical noncompliance. He is previously unknown to our practice. Pt is a Covid PUI. He presents with a complaint of abd pain, and headache x 1-2 weeks. Abd pain is described as intermittent and sharp, beginning in LLQ and radiates to epigastric. Cardiology was consulted for severe HTN, elevated BNP and elevated Troponins. Pt denies any chest pain. Pt reports he was previously diagnosed with HTN several years ago [facility]. He was prescribed medication at that time, but is not compliant and does not know what the medication is. Pt denies any CP, SOB, N/V/D, weakness or syncope. He admits daily use of marijuana, but denies regular use of other illicit drugs. He consumes ETOH regularly 3-4 beers per pay. ECG reviewed: Sinus Tach HR119. Admission BP noted to be 204/158 Lab work significant for Cr 4.2. Patient was admitted with diagnosis of accelerated hypertension, elevated troponin, acute kidney injury and pneumonia. Patient was seen by cardiology and nephrology in consultation. Cardiology recommended echocardiogram which revealed EF 20-25%, LV mildly dilated, mild LVH, restrictive physiology. However cardiology felt that there was no evidence of decompensated heart failure. Cardiology suspects newly diagnosed cardiomyopathy secondary to uncontrolled blood pressure and EtOH use. Cardiology will plan for ischemic evaluation as an outpatient. Nephrology diagnosed the patient with GILMAR superimposed on CKD stage 4. Most likely advanced CKD in the setting of poorly controlled HTN. Patient was treated with IV antibiotics for pneumonia and has significant improvement. Patient will be discharged with p.o. antibiotics. Patient will discharge with BP meds as well along with follow-up with nephrology and cardiology in the outpatient dedicated discharge time 35 minutes 10/22/2020. CT of the abdomen pelvis showed no evidence of hydronephrosis or calculi. Renal ultrasound pending. Nephrology consulted for acute renal failure. Continue IV antibiotics of Rocephin and azithromycin for pneumonia and UTI. Follow-up blood and urine cultures. Covid testing pending. Follow-up echocardiogram. Cardiology consultation pending. 10/23/2020. Covid testing from 10/21 is negative. Renal ultrasound revealed atrophy of right kidney. Nephrology following. Echocardiogram pending for diagnosis of CHF/elevated BNP. Continue to trend cardiac isoenzymes. Continue IV antibiotics for UTI. Blood cultures remain negative. 10/24/2020. Nephrology reports GILMAR superimposed on CKD stage 4. Most likely advanced CKD in the setting of poorly controlled HTN. Echocardiogram revealed EF 20-25%, LV mildly dilated, mild LVH, restrictive physiology. Cardiology plans for outpatient ischemic evaluation. Patient likely has newly diagnosed cardiomyopathy due to uncontrolled BP and EtOH abuse. Disposition: TO HOME OR SELFCARE Final Discharge Diagnosis (Prints w/discharge instructions): Sepsis, acute kidney injury on chronic kidney disease, UTI, pneumonia, EtOH dependence, acute systolic heart failure, acute hypoxic respiratory failure Time spent for discharge: 35 Core Measure Documentation - Palliative Care Palliative Care/ Comfort Measures: Not Applicable - Core Measures Any of the following diagnoses?: heart failure - Heart Failure Discharge Requirements ERICKA/ARB for LVSD if EF <40%: No Reason for no ERICKA/ARB: Renal impairment Beta katty at discharge: Yes Exam - Constitutional Vitals: Temp Pulse Resp BP Pulse Ox 99.2 F 90 20 146/102 97 10/24/20 05:47 10/24/20 05:47 10/24/20 05:47 10/24/20 05:47 10/24/20 05:47 General appearance: Present: no acute distress, well-nourished - EENT Eyes: Present: PERRL ENT: hearing intact, clear oral mucosa - Neck Neck: Present: supple, normal ROM - Respiratory Respiratory effort: normal Respiratory: bilateral: CTA - Cardiovascular Heart Sounds: Present: S1 & S2. Absent: rub, click - Extremities Extremities: pulses symmetrical, No edema Peripheral Pulses: within normal limits - Abdominal General gastrointestinal: Present: soft, non-tender, non-distended, normal bowel sounds Male genitourinary: Present: normal - Integumentary Integumentary: Present: clear, warm, dry - Musculoskeletal Musculoskeletal: gait normal, strength equal bilaterally - Psychiatric Psychiatric: appropriate mood/affect, intact judgment & insight - Neurologic Neurologic: CNII-XII intact, moves all extremities Plan Activity: advance as tolerated Weight Bearing Status: Weight Bear as Tolerated Diet: low fat, low cholesterol, low salt, renal Special Instructions: restrict fluid intake to (1L), record daily weights, other (ETOH cessation) Additional Instructions: OP ischemic eval with Cardiology Follow up with: PRIMARY CAREMD [Primary Care Provider] - 7 Days NALINI ELDER MD [Staff Physician] - 7 Days DELMY HOLDER MD [Staff Physician] - 7 Days Prescriptions: amLODIPine 10 mg PO QDAY #30 tablet hydrALAZINE [Apresoline TAB] 50 mg PO Q8HR #90 tablet carvediloL [Coreg] 25 mg PO BID #60 tablet Sodium Bicarbonate 1,300 mg PO TID #90 tablet Azithromycin [Zithromax TAB] 500 mg PO QPM #5 tablet
--- NOTE | 2020-10-24 11:17 | Progress Note ---
Assessment and Plan 29 y/o male with a significant hx of HTN, medical noncompliance. He presents with a complaint of abd pain, and headache x 1-2 weeks. Abd pain is described as intermittent and sharp, beginning in LLQ and radiates to epigastric. Cardiology was consulted for severe HTN, elevated BNP and elevated Troponins. Pt denies any chest pain. BNP is noted to be elevated on admission. tte reviewed - EF 20-25%, LV mildly dilated, mild LVH, restrictive physiology. No known prior cardiac history. No current clinical evidence of acutely decompensated HF. Cont coreg. No ACEI/ARB at this time in setting of renal insufficiency. Renal US (10/21/20) reviewed: Atrophy of R kidney. Tele reviewed: SR 79. No events overnight. CE elevation appears nonspecific at this time. Repeat CE's are unchanged and subacute. Repeat 12 Lead ECG is unremarkable. Currently stable cardiac status. ACEI/ARB held in setting of GILMAR. Suspect newly diagnosed CMP is secondary to uncontrolled BP and ETOH use. Will plan for ischemic evaluation to r/o ICMP once medically stabilized - can be done as OP. Await nephrology recs. Will follow. The patient has been seen in conjunction with Dr Mary Santiago who agrees with the assessment and plan of care. - Patient Problems (1) Hypertensive emergency Current Visit: Yes Status: Acute (2) Elevated troponin Current Visit: Yes Status: Acute (3) Acute kidney injury Current Visit: Yes Status: Acute (4) Pneumonia Current Visit: Yes Status: Acute (5) Medical non-compliance Current Visit: Yes Status: Chronic (6) EtOH dependence Current Visit: Yes Status: Chronic Qualifiers: Substance use status: uncomplicated Qualified Code(s): F10.20 - Alcohol dependence, uncomplicated (7) Marijuana use Current Visit: Yes Status: Chronic Subjective Date of service: 10/24/20 Principal diagnosis: HTN Interval history: Pt is resting bed comfortably. Tele reviewed: SR 79. No events overnight. Objective Last Vital Signs Temp 99.2 F 10/24/20 05:47 Pulse 90 10/24/20 05:47 Resp 20 10/24/20 05:47 BP 146/102 10/24/20 05:47 Pulse Ox 97 10/24/20 05:47 - Physical Examination General: No Apparent Distress HEENT: Positive: PERRL, Normocephaly, Mucus Membranes Moist Neck: Positive: neck supple, trachea midline Cardiac: Positive: Reg Rate and Rhythm Lungs: Positive: clear to auscultation, Normal Breath Sounds Neuro: Positive: Grossly Intact Abdomen: Positive: Unremarkable, Soft Skin: Negative: Rash, Wound Musculoskeletal: No Pain Extremities: Present: upper extr. pulses, lower extr. pulses. Absent: edema - Labs and Meds CBC 10/24/20 Range/Units 09:35 WBC 4.6 (4.5-11.0) K/mm3 RBC 3.90 (3.65-5.03) M/mm3 Hgb 10.4 L (11.8-15.2) gm/dl Hct 32.7 L D (35.5-45.6) % Plt Count 316 (140-440) K/mm3 Lymph # (Auto) 1.1 L (1.2-5.4) K/mm3 Burke # (Auto) 0.6 (0.0-0.8) K/mm3 Eos # (Auto) 0.1 (0.0-0.4) K/mm3 Baso # (Auto) 0.1 (0.0-0.1) K/mm3 Comprehensive Metabolic Panel 10/24/20 Range/Units 05:19 Sodium 136 L D (137-145) mmol/L Potassium 3.8 (3.6-5.0) mmol/L Chloride 101.9 (98-107) mmol/L Carbon Dioxide 25 (22-30) mmol/L BUN 48 H (9-20) mg/dL Creatinine 4.4 H (0.8-1.3) mg/dL Glucose 99 (75-100) mg/dL Calcium 8.4 (8.4-10.2) mg/dL - Imaging and Cardiology EKG: report reviewed, image reviewed Echo: pending - Telemetry EKG Rhythm: Sinus Rhythm - EKG Sinus rhythms and dysrhythmias: sinus rhythm
[2020-10-24 13:45] VITALS: BP 141/83
--- NOTE | 2020-10-24 14:09 | Progress Note ---
Assessment and Plan 1. Acute kidney injury: GILMAR superimposed on CKD stage 4. Renal US showed atrophic R kidney and negative for hydro. Most likely advanced CKD in the setting of poorly controlled HTN. Monitor renal function. Renal prognosis is guarded. Avoid nephrotoxic agents. Meds dosage based on GFR. 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 2. FEN: Hypokalemia, K level is better, monitor. Hyponatremia, improved, monitor. PO Sodium bicarbonate. Monitor lytes and volume status. 3. Acute hypoxic respiratory failure, POA: 2/2 PNA and CHF. COVID test negative. On RA. 4. Sepsis, POA: 2/2 PNA vs UTI. Abx. Cultures negative so far. 5. Elevated Troponins: No chest pain. Non-specific per Cards. Followed by Cards. 6. Acute CHF: LVEF 20-25%. 7. UTI: Abx. 8. Accelerated hypertension: BP is better. Monitor. 9. EtOH and Nicotine dependence: Counseled. D/w patient about f/u with me in 1 week. Pt to call for appt. Subjective: Patient was seen and examined at the bedside. Doing ok. Objective: General appearance: well-developed, appears stated age, no distress noted HEENT: ATNC, CARLOS Neck: trachea midline Respiratory: ctab Heart: regular, S1S2, no murmur Gastrointestinal: soft, normoactive bowel sounds, not tender Integumentary: no rash, warm and dry Ext: no edema Neurologic: AO, non-focal Musculoskeletal: no obvious deformity Subjective Date of service: 10/24/20 Principal diagnosis: HTN Objective - Vital Signs Vital signs: Vital Signs - 12hr 10/24/20 10/24/20 05:47 12:13 Temperature 99.2 F 98.9 F Pulse Rate 90 81 Respiratory 20 18 Rate Blood Pressure 146/102 141/83 O2 Sat by Pulse 97 92 Oximetry - Lab 10/24/20 09:35 10/24/20 05:19 Most recent lab results Calcium 8.4 mg/dL (8.4-10.2) 10/24/20 05:19 Phosphorus 5.20 mg/dL (2.5-4.5) H 10/22/20 07:20 Magnesium 1.70 mg/dL (1.7-2.3) 10/22/20 07:20 Medications & Allergies - Medications Allergies/Adverse Reactions: Allergies No Known Allergies Allergy (Unverified 10/21/20 15:18) Home Medications: Home Medications Medication Instructions Recorded Confirmed Last Taken Type Azithromycin [Zithromax TAB] 500 mg PO QPM #5 tablet 10/24/20 Unknown Rx Sodium Bicarbonate 1,300 mg PO TID #90 tablet 10/24/20 Unknown Rx amLODIPine 10 mg PO QDAY #30 tablet 10/24/20 Unknown Rx carvediloL [Coreg] 25 mg PO BID #60 tablet 10/24/20 Unknown Rx hydrALAZINE [Apresoline TAB] 50 mg PO Q8HR #90 tablet 10/24/20 Unknown Rx Active Medications: Generic Name Dose Route Start Last Admin Trade Name Freq PRN Reason Stop Dose Admin Acetaminophen 650 mg 10/21/20 23:04 Acetaminophen 325 Mg Tab PO Q4H PRN Pain MILD(1-3)/Fever >100.5/HUERTA Amlodipine Besylate 10 mg 10/21/20 22:33 10/24/20 09:38 Amlodipine 10 Mg Tab PO 10 mg QDAY JOSEPH Administration Azithromycin 500 mg 10/22/20 18:00 10/23/20 18:00 Azithromycin 250 Mg Tab PO 10/25/20 18:01 500 mg QPM JOSEPH Administration Carvedilol 25 mg 10/23/20 17:00 10/24/20 09:38 Carvedilol 25 Mg Tab PO 25 mg BID JOSEPH Administration Hydralazine HCl 50 mg 10/21/20 23:00 10/24/20 14:02 Hydralazine 25 Mg Tab PO 50 mg Q8HR JOSEPH Administration Hydralazine HCl 10 mg 10/21/20 23:06 Hydralazine 20 Mg/1 Ml Inj IV Q3H PRN Blood Pressure Hydromorphone HCl 0.5 mg 10/21/20 23:04 10/22/20 08:44 Hydromorphone 1 Mg/1 Ml Inj IV 0.5 mg Q3H PRN Administration Pain , Severe (7-10) Ceftriaxone Sodium 1 gm in 50 mls @ 100 mls/hr 10/22/20 18:00 10/23/20 18:01 Rocephin/Ns 1 Gm/50 Ml IV 100 mls/hr Q24H JOSEPH Administration Protocol Lorazepam 2 mg 10/22/20 07:07 Lorazepam 2 Mg/Ml Vial IV Q1H PRN CIWA-Ar 8-15 Lorazepam 4 mg 10/22/20 07:07 Lorazepam 2 Mg/Ml Vial IV Q1H PRN CIWA-Ar 16-25 Nicotine 14 mg 10/22/20 10:00 10/24/20 10:09 Nicotine 14 Mg/24 Hr Patch TD 14 mg QDAY JOSEPH Administration Ondansetron HCl 4 mg 10/21/20 23:04 Ondansetron 4 Mg/2 Ml Inj IV Q8H PRN Nausea And Vomiting Oxycodone/Acetaminophen 1 tab 10/21/20 23:04 10/23/20 20:45 Oxycodone /Acetaminophen 5-325mg Tab PO 1 tab Q6H PRN Administration Pain, Moderate (4-6) Sodium Bicarbonate 1,300 mg 10/23/20 12:00 10/24/20 14:02 Sodium Bicarbonate 650 Mg Tab PO 1,300 mg TID JOSEPH Administration Sodium Chloride 10 ml 10/22/20 10:00 10/24/20 09:38 Sodium Chloride 0.9% 10 Ml Flush Syringe IV 10 ml BID JOSEPH Administration Sodium Chloride 10 ml 10/21/20 23:04 Sodium Chloride 0.9% 10 Ml Flush Syringe IV PRN PRN LINE FLUSH
--- NOTE | 2020-10-25 10:13 | Vascular Lab Report ---
Renal artery stenosis Ultrasound HISTORY: To r/o renal artery stenosis.. TECHNIQUE: Grayscale and color imaging performed. COMPARISON: Renal ultrasound from 10/22/2020 FINDINGS: The abdominal aorta and branch vessels are all widely patent with no significant atheroscle rotic disease. Maximal peak systolic velocity in the aorta is 99 cm/s proximally. Right kidney: 8.9 cm in length with parenchymal thickness of 1 cm and generalized increased echogenic ity of the parenchyma. No mass, cyst, or hydronephrosis. Resistive indices were not obtained in the i ntrarenal arteries. Maximal peak systolic flow within the renal artery is seen proximally and measure s 76 cm/s. The renal artery to aortic ratio is less than 3.5. Left kidney measures 11.5 cm in length with parenchymal thickness of 1.4 cm. There is generalized inc reased echogenicity of the parenchyma with no mass, cyst, or hydronephrosis. Resistive indices in the intrarenal arteries were not obtained. Maximal peak systolic flow within the renal artery is seen pr oximally and measures 58 cm/s. The renal artery to aortic ratio is less than 3.5. IMPRESSION: 1. No evidence of renal artery stenosis. 2. Abnormal echogenic appearance of both kidneys with bilateral renal parenchymal thinning and size d iscrepancy with overall atrophic right kidney. This constellation of these findings can be seen with medical renal disease. Signer Name: Maxim Arguelles MD Signed: 10/25/2020 10:09 AM Workstation Name: [id number]
--- NOTE | 2020-10-25 10:16 | Electrocardiograph Report ---
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
--- NOTE | 2020-10-25 10:38 | Electrocardiograph Report ---
[facility] Test Date: 2020-10-23 Test Time: 10:15:39 Pat Name: YOLANDA VAIL Department: Room: A390 Gender: M Physician Aide: LAURA : 1990 Requested By: DAWOOD ALEMAN Order Number: [id number] Reading MD: Sweetie Scott Measurements Intervals [place] Rate: 94 P: 66 [place]: 140 QRS: 48 QRSD: 84 T: 225 QT: 379 QTc: 474 Interpretive Statements Sinus rhythm LAE, consider biatrial enlargement LVH WITH SECONDARY REPOLARIZATION ABNORMALITY Abnrm T, consider ischemia, anterolateral lds Compared to ECG 10/21/2020 17:03:16 Possible ischemia now present Electronically Signed On 10-25-2020 10:38:32 EDT by Sweetie Scott
== END 2020-10-24 14:00 | disposition home or self-care (01) | DRG 871 ==
LOC: ED 14:29 → 3A 17:41
PROVIDERS: ADMIT Internal Medicine; ATTEND Hospitalist
DX: A41.9 Sepsis, unspecified organism (principal); J18.9 Pneumonia, unspecified organism; J96.01 Acute respiratory failure with hypoxia; I50.21 Acute systolic (congestive) heart failure; N17.9 Acute kidney failure, unspecified; N39.0 Urinary tract infection, site not specified; I16.1 Hypertensive emergency; I13.0 Hypertensive heart and chronic kidney disease with heart failure and stage 1 through stage 4 chronic kidney disease, or unspecified chronic kidney disease; E87.1 Hypo-osmolality and hyponatremia; I42.9 Cardiomyopathy, unspecified; F12.10 Cannabis abuse, uncomplicated; Z20.822 Contact with and (suspected) exposure to COVID-19; R77.8 Other specified abnormalities of plasma proteins; F10.20 Alcohol dependence, uncomplicated; E87.6 Hypokalemia; F17.200 Nicotine dependence, unspecified, uncomplicated; N18.9 Chronic kidney disease, unspecified; Z91.14 Patient's other noncompliance with medication regimen
CPT/HCPCS: 36415; 71045; 74176; 76770; 80048; 80053; 80061; 81001; 82140; 82550; 82553; 82728; 82947; 83615; 83690; 83735; 83880; 83970; 84100; 84145; 84484; 85025; 85379; 86140; 87040; 87086; 90686; 93005; 93306; 93975; 96365; 96375; 96376; 99406; G0378; J0456; J0696; J1170; J2270; J2405; J7030; U0003

== ENCOUNTER 2021-06-02 19:46 | Emergency (ER) | payer SELFPAY ==
[2021-06-02] MEDS ORDERED: METOCLOPRAMIDE 10 MG TAB PO ONE (20:08)
[2021-06-02] MEDS ORDERED: ACETAMINOPHEN 325 MG TAB PO ONE (20:08)
--- NOTE | 2021-06-02 20:11 | Event Note ---
Date: 06/02/21 EMS documentation not available at time of chart dictation Verbal report received from EMS Medical screening examination: Nephrology: Dr. Anderson 30-year-old gentleman with a history of end-stage renal disease on hemodialysis, history of stroke and hypertension, reportedly completed hemodialysis today, presenting with nontraumatic headache, lightheadedness, dizziness, and right- sided abdominal pain. EMS reports normal vital signs in the field. Patient has 5 out of 5 strength in 4 extremities. He has a GCS of 15. He appears generally weak. Initial ER orders placed. Detailed history and physical to follow RAVIN
[2021-06-02 20:55] LABS: Basophils # (Auto) 0.1 K/mm3 (0.0-0.1); Basophils % (Auto) 2.6 % (0.0-1.8); Eosinophils # (Auto) 0.2 K/mm3 (0.0-0.4); Eosinophils % (Auto) 3.3 % (0.0-4.3); Hematocrit 38.3 % (35.5-45.6); Hemoglobin 12.1 gm/dl (11.8-15.2); Lymphocytes # (Auto) 0.9 K/mm3 (1.2-5.4); Lymphocytes % (Auto) 16.3 % (13.4-35.0); Mean Corpuscular HGB Conc 32 % (32-34); Mean Corpuscular Volume 81 fl (84-94); Monocytes # (Auto) 0.4 K/mm3 (0.0-0.8); Monocytes % (Auto) 6.7 % (0.0-7.3); Platelet Count 167 K/mm3 (140-440); Red Blood Count 4.73 M/mm3 (3.65-5.03); Red Cell Distribution Width 16.9 % (13.2-15.2)
[2021-06-02 21:05] LABS: INR 0.92 (0.87-1.13)
[2021-06-02 21:13] LABS: Alanine Aminotransferase 44 units/L (7-56); Albumin 4.6 g/dL (3.9-5); BUN/Creatinine Ratio 7; Blood Urea Nitrogen 20 mg/dL (9-20); Calcium 9.1 mg/dL (8.4-10.2); Hemolysis Index 59
[2021-06-02 21:18] LABS: Bilirubin,Direct < 0.2 mg/dL (0-0.2)
--- NOTE | 2021-06-02 21:31 | Cat Scan Report ---
CT HEAD WITHOUT CONTRAST INDICATION / CLINICAL INFORMATION: esrd, hx of cva, post HD headache. TECHNIQUE: All CT scans at this location are performed using CT dose reduction for ALARA by means of automated exposure control. COMPARISON: None available. FINDINGS: HEMORRHAGE: None. EXTRA-AXIAL SPACES: Normal in size and morphology for the patient's age. VENTRICULAR SYSTEM: Normal in size and morphology for the patient's age. CEREBRAL PARENCHYMA: Small hypodensities in bilateral basal ganglia are nonspecific but can be seen w ith microangiopathic changes. MIDLINE SHIFT / HERNIATION: None. CEREBELLUM / BRAINSTEM: No significant abnormality. ORBITS: Normal as visualized. SOFT TISSUES: No significant abnormality. SKULL: No significant abnormality. PARANASAL SINUSES / MASTOID AIR CELLS: Normal as visualized. ADDITIONAL FINDINGS: None. IMPRESSION: 1. No acute intracranial abnormality. 2. Incidental findings as above. Signer Name: Cal Casper MD Signed: 06/02/2021 9:26 PM Workstation Name: [id number]
--- NOTE | 2021-06-02 22:12 | Cat Scan Report ---
CT ABDOMEN AND PELVIS WITHOUT CONTRAST INDICATION / CLINICAL INFORMATION: Right-sided abdominal pain. TECHNIQUE: Axial CT images were obtained through the abdomen and pelvis without IV contrast. All CT scans at this location are performed using CT dose reduction for ALARA by means of automated exposure control. COMPARISON: CT 10/21/2020 FINDINGS: LOWER CHEST: No significant abnormality. LIVER: No significant abnormality. GALLBLADDER: No significant abnormality. BILE DUCTS: No significant abnormality. PANCREAS: No significant abnormality. SPLEEN: No significant abnormality. ADRENALS: No significant abnormality. RIGHT KIDNEY / URETER: No significant abnormality. LEFT KIDNEY / URETER: No significant abnormality. STOMACH / SMALL BOWEL: No significant abnormality. COLON: Moderate colonic stool burden. APPENDIX: No significant abnormality. PERITONEUM: No free fluid. No free air. No fluid collection. LYMPH NODES: No significant adenopathy. AORTA / ARTERIES: No significant abnormality. IVC / VEINS: No significant abnormality. URINARY BLADDER: No significant abnormality. REPRODUCTIVE ORGANS: No significant abnormality. ADDITIONAL FINDINGS: None. SKELETAL SYSTEM: No significant abnormality. IMPRESSION: 1. No acute abnormality identified. 2. Moderate colonic stool burden which can be seen with constipation in the proper clinical setting. Signer Name: Cal Casper MD Signed: 06/02/2021 10:07 PM Workstation Name: [id number]
--- NOTE | 2021-06-02 23:21 | Emergency Department Report ---
ED General Adult HPI - General Chief complaint: Abdominal Pain Stated complaint: WEAKNESS, NAUSEA Time Seen by Provider: 06/02/21 21:00 Source: EMS Mode of arrival: Stretcher Limitations: No Limitations - History of Present Illness Initial comments: 30-year-old -[place] male with past medical history of severe hypertension that resulted in end-stage renal disease requiring dialysis having just completed dialysis today presents emergency department complaining of having some abdominal discomfort and previous syncope after taking his blood pre ssure medications at home with return from dialysis. He reports these have his medication changes about 1 month ago and still still getting acclimated which may may be the culprit reports no nausea, no vomiting no fever, chills, sweats no hemoptysis no hematemesis no hematochezia no no chest pain or palpitations but does feel fatigued weak and lightheaded from time to time with a vague headache and some nonspecific abdominal discomfort. Severity scale (0 -10): 5 Quality: aching, dull Consistency: constant Associated Symptoms: headaches, malaise, nausea/vomiting, weakness. denies: chest pain, cough, diaphoresis, loss of appetite - Related Data Previous Rx's Medication Instructions Recorded Last Taken Type Azithromycin [Zithromax TAB] 500 mg PO QPM #5 tablet 10/24/20 Unknown Rx Sodium Bicarbonate 1,300 mg PO TID #90 tablet 10/24/20 Unknown Rx amLODIPine 10 mg PO QDAY #30 tablet 10/24/20 Unknown Rx carvediloL [Coreg] 25 mg PO BID #60 tablet 10/24/20 Unknown Rx hydrALAZINE [Apresoline TAB] 50 mg PO Q8HR #90 tablet 10/24/20 Unknown Rx Butalb/Acetaminophen/Caffeine 1 cap PO Q8HR PRN #10 cap 06/02/21 Unknown Rx [Fioricet 50-300-40 mg CAP] Allergies Allergy/AdvReac Type Severity Reaction Status Date / Time No Known Allergies Allergy Verified 06/02/21 20:27 ED Review of Systems ROS: Stated complaint: WEAKNESS, NAUSEA Other details as noted in HPI Comment: All other systems reviewed and negative ED Past Medical Hx - Past Medical History Hx Hypertension: Yes Hx CVA: Yes Hx Renal Disease: Yes Additional medical history: High cholesterol - Surgical History Past Surgical History?: Yes Additional Surgical History: Juan Cath R chest wall - Social History Smoking Status: Never Smoker Substance Use Type: None - Medications Home Medications: Home Medications Medication Instructions Recorded Confirmed Last Taken Type Azithromycin [Zithromax TAB] 500 mg PO QPM #5 tablet 10/24/20 Unknown Rx Sodium Bicarbonate 1,300 mg PO TID #90 tablet 10/24/20 Unknown Rx amLODIPine 10 mg PO QDAY #30 tablet 10/24/20 Unknown Rx carvediloL [Coreg] 25 mg PO BID #60 tablet 10/24/20 Unknown Rx hydrALAZINE [Apresoline TAB] 50 mg PO Q8HR #90 tablet 10/24/20 Unknown Rx Butalb/Acetaminophen/Caffeine 1 cap PO Q8HR PRN #10 cap 06/02/21 Unknown Rx [Fioricet 50-300-40 mg CAP] ED Physical Exam - General Limitations: No Limitations General appearance: alert, in no apparent distress - Head Head exam: Present: atraumatic, normocephalic - Eye Eye exam: Present: normal appearance, PERRL, EOMI. Absent: scleral icterus, conjunctival injection, periorbital swelling, other Pupils: Present: normal accommodation - ENT ENT exam: Present: mucous membranes moist - Neck Neck exam: Present: normal inspection - Respiratory Respiratory exam: Present: normal lung sounds bilaterally. Absent: respiratory distress - Cardiovascular Cardiovascular Exam: Present: regular rate, normal rhythm. Absent: systolic murmur, diastolic murmur, rubs, gallop - GI/Abdominal GI/Abdominal exam: Present: soft, normal bowel sounds - Rectal Rectal exam: Present: deferred - Extremities Exam Extremities exam: Present: normal inspection - Back Exam Back exam: Present: normal inspection - Neurological Exam Neurological exam: Present: alert, oriented X3 - Psychiatric Psychiatric exam: Present: normal affect, normal mood - Skin Skin exam: Present: warm, dry, intact, normal color. Absent: rash ED Course Vital Signs 06/02/21 06/02/21 20:25 21:11 Temperature 98.0 F Pulse Rate 99 H Respiratory 19 16 Rate Blood Pressure 130/82 [Left] O2 Sat by Pulse 99 Oximetry ED Medical Decision Making - Lab Data Result diagrams: 06/02/21 20:26 06/02/21 20:26 - Radiology Data Radiology results: report reviewed [facility] [address] [place] [address] Cat Scan Report Signed Patient: YOLANDA VAIL MR#: [id number] 7 : 1990 Acct:[id number] Age/Sex: 30 / M ADM Date: 06/02/21 Loc: ED Attending Dr: Ordering Physician: MICHELA SAM MD Date of Service: 06/02/21 Procedure(s): CT head/brain wo con Accession Number(s): [id number] cc: MICHELA SAM MD CT HEAD WITHOUT CONTRAST INDICATION / CLINICAL INFORMATION: esrd, hx of cva, post HD headache. TECHNIQUE: All CT scans at this location are performed using CT dose reduction for ALARA by means of automated exposure control. COMPARISON: None available. FINDINGS: HEMORRHAGE: None. EXTRA-AXIAL SPACES: Normal in size and morphology for the patient's age. VENTRICULAR SYSTEM: Normal in size and morphology for the patient's age. CEREBRAL PARENCHYMA: Small hypodensities in bilateral basal ganglia are nonspecific but can be seen with microangiopathic changes. MIDLINE SHIFT / HERNIATION: None. CEREBELLUM / BRAINSTEM: No significant abnormality. ORBITS: Normal as visualized. SOFT TISSUES: No significant abnormality. SKULL: No significant abnormality. PARANASAL SINUSES / MASTOID AIR CELLS: Normal as visualized. ADDITIONAL FINDINGS: None. IMPRESSION: 1. No acute intracranial abnormality. 2. Incidental findings as above. Signer Name: Cal Casper MD Signed: 06/02/2021 9:26 PM Workstation Name: [id number] Transcribed By: DB Dictated By: CAL CASPER MD Electronically Authenticated By: CAL CASPER MD Signed Date/Time: 06/02/212125 DD/ 23 TD/TT: [address] [address] Cat Scan Report Signed Patient: YOLANDA VAIL MR#: [id number] 7 : 1990 Acct:[id number] Age/Sex: 30 / M ADM Date: 06/02/21 Loc: ED Attending Dr: Ordering Physician: MICHELA SAM MD Date of Service: 06/02/21 Procedure(s): CT abdomen pelvis wo con Accession Number(s): [id number] cc: MICHELA SAM MD CT ABDOMEN AND PELVIS WITHOUT CONTRAST INDICATION / CLINICAL INFORMATION: Right-sided abdominal pain. TECHNIQUE: Axial CT images were obtained through the abdomen and pelvis without IV contrast. All CT scans at this location are performed using CT dose reduction for ALARA by means of automated exposure control. COMPARISON: CT 10/21/2020 FINDINGS: LOWER CHEST: No significant abnormality. LIVER: No significant abnormality. GALLBLADDER: No significant abnormality. BILE DUCTS: No significant abnormality. PANCREAS: No significant abnormality. SPLEEN: No significant abnormality. ADRENALS: No significant abnormality. RIGHT KIDNEY / URETER: No significant abnormality. LEFT KIDNEY / URETER: No significant abnormality. STOMACH / SMALL BOWEL: No significant abnormality. COLON: Moderate colonic stool burden. APPENDIX: No significant abnormality. PERITONEUM: No free fluid. No free air. No fluid collection. LYMPH NODES: No significant adenopathy. AORTA / ARTERIES: No significant abnormality. IVC / VEINS: No significant abnormality. URINARY BLADDER: No significant abnormality. REPRODUCTIVE ORGANS: No significant abnormality. ADDITIONAL FINDINGS: None. SKELETAL SYSTEM: No significant abnormality. IMPRESSION: 1. No acute abnormality identified. 2. Moderate colonic stool burden which can be seen with constipation in the proper clinical setting. Signer Name: Cal Casper MD Signed: 06/02/2021 10:07 PM Workstation Name: [id number] Transcribed By: DB Dictated By: CAL CASPER MD Electronically Authenticated By: CAL CASPER MD Signed Date/Time: 06/02/212206 DD/ 02 TD/TT: Print Cancel Print Cancel - Medical Decision Making Problem 1 abdominal pain 30-year-old male this patient presents with abdominal pain of unclear etiology. A CT scan was performed to evaluate for potential causes of the abdominal pain, however, neither the clinical exam nor the CT has identified an emergent etiology for the abdominal pain. Specifically, given the benign exam, the laboratory studies, and unremarkable CT, I have a very low suspicion for appendicitis, ischemic bowel, bowel perforation, or any other life threatening disease. I have discussed with the patient the level of uncertainty with undifferentiated abdominal pain and clearly explained the need to follow-up as noted on the discharge instructions, or return to the Emergency Department immediately if the pain worsens, develops fever, persistent and uncontrollable vomiting, or for any new symptoms or concerns. Problem 2 headache This patient presents with a headache most consistent with nonemergent cause. Differential diagnosis includes migraine versus tension type headache. No hea dache red flags. Neurologic exam without evidence of meningismus, focal neurologic findings.Based on the patient's history and physical there is very low clinical suspicion for significant intracranial pathology. The headache was NOT sudden onset, NOT maximal at onset, there are NO neurologic findings, the patient does NOT have a fever, the patient does NOT have any jaw claudication, the patient does NOT endorse a clotting disorder, patient DENIES any trauma or eye pain and the headache is NOT associated with dizziness or ataxia. Presentation not consistent with acute intracranial bleed to include SAH (lack of risk factors, headache history). Presentation not consistent with acute SKINNING MACHINE FEEDER infection to include meningitis or brain abscess, Temporal arteritis unlikely, as is acute angle closure glaucoma given history and physical findings. Presentation not consistent with other acute, emergent causes of headache at this time. Plan to treat symptomatically with pain medication. No indication for imaging/LP at this time. CT scan of the brain was no Plan: pain medication,, serial reassessment . Critical care attestation.: If time is entered above; I have spent that time in minutes in the direct care of this critically ill patient, excluding procedure time. ED Disposition Clinical Impression: Headache, Abdominal pain, Malaise, Constipation Disposition: 01 HOME / SELF CARE / HOMELESS Is pt being admited?: No Does the pt Need Aspirin: No Condition: Stable Instructions: Weakness, [id number], General Headache Without Cause, Abdominal Pain, Adult, Constipation, Adult Prescriptions: Butalb/Acetaminophen/Caffeine [Fioricet 50-300-40 mg CAP] 1 cap PO Q8HR PRN #10 cap PRN Reason: Headache Referrals: [facility] [Provider Group] - 3-5 Days
[2021-06-03 00:53] VITALS: BP 137/86
--- NOTE | 2021-06-03 11:27 | Electrocardiograph Report ---
[facility] Test Date: 2021-06-03 Test Time: 00:38:56 Pat Name: YOLANDA VAIL Department: Room: Gender: M Stem Lead Former: [id number] : 1990 Requested By: MICHELA SAM Order Number: [id number] Reading MD: Sweetie Scott Measurements Intervals [place] Rate: 73 P: 75 [place]: 152 QRS: 71 QRSD: 87 T: 61 QT: 436 QTc: 477 Interpretive Statements Sinus rhythm Right atrial enlargement Left ventricle hypertrophy with repolarization abnormalities of LVH Compared to ECG 10/23/2020 10:15:39 No significant change Electronically Signed On 06-03-2021 11:27:34 EST by Sweetie Scott
== END 2021-06-03 00:34 | disposition home or self-care (01) ==
LOC: ED 19:46
DX: K59.00 Constipation, unspecified (principal); R51.9 Headache, unspecified; R53.81 Other malaise; R55 Syncope and collapse; I12.0 Hypertensive chronic kidney disease with stage 5 chronic kidney disease or end stage renal disease; E78.5 Hyperlipidemia, unspecified; N18.6 End stage renal disease; Z99.2 Dependence on renal dialysis
CPT/HCPCS: 36415; 70450; 74176; 80048; 80076; 83690; 85025; 85610; 93005; 99284

== ENCOUNTER 2021-12-10 06:01 | Day surgery (SDC) | payer MEDICARE ==
[~2021-12-10 06:01] MED LIST: ceFAZolin/STERILE WATER 2 GM/20 ML SYRINGE IV NR
[2021-12-10] MEDS ORDERED: SODIUM CHLORIDE 0.9% 1000 ML 1,000 ML ONE (06:44)
[2021-12-10] MEDS ORDERED: BACTERIOSTATIC SODIUM CHLORIDE 0.9% 30 ML VIAL INFILTRATI ONE (06:45)
[2021-12-10] MEDS ORDERED: BUPIVACAINE/PF (0.5%) 5 MG/1 ML 30 ML VIAL INFILTRATI ONE ×2 (07:27→07:41)
[2021-12-10 07:28] LABS: Hematocrit 40.9 % (35.5-45.6); Hemoglobin 12.9 gm/dl (11.8-15.2); Mean Corpuscular HGB Conc 32 % (32-34); Mean Corpuscular Volume 86 fl (84-94); Platelet Count 253 K/mm3 (140-440); Red Blood Count 4.77 M/mm3 (3.65-5.03)
[2021-12-10] MEDS ORDERED: HEPARIN 10,000 UNITS/10 ML VIAL ONE (07:28)
[2021-12-10] MEDS ORDERED: SODIUM CHLORIDE 0.9% 500 ML 500 ML ONE (07:28)
--- NOTE | 2021-12-10 07:30 | Anesthesia Consultation ---
Anesthesia Consult and Med Hx Date of service: 12/10/21 - Airway Anesthetic Teeth Evaluation: Chipped (some chipped teeth in the back) ROM Head & Neck: Adequate Mental/Hyoid Distance: Adequate Mallampati Class: Class II Intubation Access Assessment: Probably Good - Pre-Operative Health Status ASA Pre-Surgery Classification: ASA3 Proposed Anesthetic Plan: MAC Nerve Block: IS - Pulmonary Hx Smoking: Yes (STOPPED SMOKING 2018.) Hx Pneumonia: Yes (OCTOBER 2020) Hx Sleep Apnea: No - Cardiovascular System Hx Hypertension: Yes Hx Coronary Artery Disease: No (high cholesterol) Hx Heart Attack/AMI: No (EF 20-25% (10/13)) - Central Nervous System CVA: Yes (FEBRUARY 2021. NO DEFICITS.) Hx Psychiatric Problems: No - Endocrine Hx Renal Disease: Yes Hx End Stage Renal Disease: Yes (last HD 12/07/21) - Hematic Hx Anemia: No Hx Sickle Cell Disease: No - Other Systems Hx Alcohol Use: Yes (quit drinking last year) Hx Substance Use: Yes (marijuana daily) Hx Cancer: No
--- NOTE | 2021-12-10 07:36 | Anesthesia Day of Surgery ---
Anesthesia Day of Surgery - Day of Surgery Patient Examined: Yes Patient H&P Reviewed: Yes Patient is NPO: Yes Beta Blockers: Yes
[2021-12-10] MEDS ORDERED: dexAMETHasone 20 MG/5 ML VIAL ONE (07:43)
[2021-12-10] MEDS ORDERED: ONDANSETRON 4 MG/2 ML INJ ONE (07:43)
[2021-12-10] MEDS ORDERED: LIDOCAINE MPF (2%) 20 MG/1 ML VIAL 5 ML ONE (07:43)
[2021-12-10] MEDS ORDERED: propofoL 200 MG/20 ML VIAL IV ONE (07:44)
[2021-12-10] MEDS ORDERED: HYDROmorphone 1 MG/1 ML INJ ONE (07:44)
[2021-12-10 07:53] LABS: Calcium 9.3 mg/dL (8.4-10.2)
[2021-12-10] MEDS ORDERED: fentaNYL 100 MCG/2 ML INJ ONE (07:59)
[2021-12-10] MEDS ORDERED: SODIUM CHLORIDE 0.9% 1000 ML 1,000 ML IV SCH ×2 (08:00)
[2021-12-10] MEDS ORDERED: FAMOTIDINE 20 MG/2 ML INJ IV NR (08:00)
[2021-12-10] MEDS ORDERED: MIDAZOLAM 2 MG/2 ML INJ IV NR (08:00)
[2021-12-10] MEDS ORDERED: ePHEDrine SULFATE 50 MG/1 ML INJ ONE (08:43)
[2021-12-10] MEDS ORDERED: fentaNYL 100 MCG/2 ML INJ IV NR (09:00)
[2021-12-10] MEDS ORDERED: HEPARIN 10,000 UNITS/10 ML VIAL IR ONE (09:18)
[2021-12-10] MEDS ORDERED: SODIUM CHLORIDE 0.9% IRR 1,500 ML BOTTLE IR ONE (09:19)
[2021-12-10] MEDS ORDERED: SODIUM CHLORIDE 0.9% 500 ML IVPB IRRIGATION ONE (09:19)
--- NOTE | 2021-12-10 10:07 | Short Stay Summary ---
Short Stay Documentation Date of service: 12/10/21 Narrative H&P: See H&P - History H&P: obtained from office - Allergies and Medications Current Medications: Allergies No Known Allergies Allergy (Verified 12/02/21 11:11) Home Medications Medication Instructions Recorded Confirmed Last Taken Type carvediloL [Coreg] 25 mg PO DAILY 11/18/21 12/10/21 12/10/21 05:00 History hydrALAZINE [Apresoline TAB] 100 mg PO Q8HR 11/18/21 12/10/21 12/10/21 05:00 History Active Medications Cefazolin Sodium (Cefazolin/Sterile Water 2 Gm/20 Ml Syringe) 2 gm IV PREOP NR Stop: 12/10/21 23:59 Sodium Chloride (Nacl 0.9% 1000 Ml) 1,000 mls @ 42 mls/hr IV DIRECT JOSEPH Sodium Chloride (Nacl 0.9% 1000 Ml) 1,000 mls @ 42 mls/hr IV DIRECT JOSEPH Last Admin: 12/10/21 08:10 Dose: 42 mls/hr Midazolam HCl (Midazolam 2 Mg/2 Ml Inj) 2 mg IV PREOP NR Stop: 12/10/21 23:59 Last Admin: 12/10/21 08:11 Dose: 2 mg - Brief post op/procedure progress note Date of procedure: 12/10/21 Pre-op diagnosis: End-Stage Renal Disease Post-op diagnosis: same Procedure: Creation of Left Avani Arteriovenous Fistula Anesthesia: MAC, regional Surgeon: LINDY WILLIAMSON Estimated blood loss: minimal Pathology: none Condition: stable - Disposition Condition at discharge: Good Disposition: 01 HOME / SELF CARE / HOMELESS Short Stay Discharge Plan Activity: other (No heavy lifting with left arm for 2 weeks. Use stress ball with left hand as often as possible.) Wound: open to air, keep clean and dry, other (Okay to wash the left arm incision with soap and water but do not soak in water for 2 weeks.) Follow up with: LINDY WILLIAMSON MD [Staff Physician] - 14 Days Prescriptions: HYDROcodone/APAP 7.5-325 [Bayard 7.5/325] 1 each PO Q6HR PRN #30 tablet PRN Reason: Pain
--- NOTE | 2021-12-10 10:09 | Operative Report ---
Operative Report Operative Report: Date of procedure: 12/10/2021 Pre-operative diagnosis: End-Stage Renal Disease Post-operative diagnosis: End-Stage Renal Disease Procedure(s): Creation of Left Avani Fistula Surgeon: Júnior Iglesias MD Public Improvement Inspector: None Anesthesia: Regional/MAC EBL: Minimal Counts: Correct Complications: None Condition: Stable Findings: Successful creation of left arm AV fistula with palpable thrill at the completion of the case. Specimen: None Indication: The patient is a 31-year-old male with a history of end-stage renal disease who is currently on hemodialysis through a right internal jugular permacath. He is in need of permanent dialysis access and has adequate vein for creation of a left arm arteriovenous fistula. He was given the risk, benefits, and alternative procedures and consented to the procedure. Description of Procedure: Prior to being transported to the operating room the patient had a regional block of the left upper extremity performed in the preoperative area. The patient was then transported to the operating room and adequately sedated. Once the patient was adequately sedated the left arm was prepped and draped in normal sterile fashion. A longitudinal incision was then created on the distal wrist, centered between the cephalic vein and the radial artery. The dissection was carried down to the radial artery using sharp dissection and the radial artery was dissected circumferentially and controlled with vessel loops. The cephalic vein was then dissected circumferentially, ligating side branches with 3-0 silk ties and dividing them. The cephalic vein was then divided distally transpose to the radial artery. A 3 Ajmie was then advanced through the cephalic vein proximally to ensure patency. The vein was then flushed with heparinized saline and control of the bulldog clamp. The patient was systemically heparinized with 3000 units of heparin IV and the radial artery clamped with DeBakey clamps. An arteriotomy was then created using an 11 blade and Flores scissors. An end-to-side anastomosis was created between the cephalic vein and the radial artery using a single 6-0 Prolene in running fashion. Prior to completing the anastomosis I flashed the artery both retrograde and antegrade and advanced a 3 Jamie into the proximal portion of the artery to break the spasm. I then completed the anastomosis and removed all clamps allowing flow into the fistula which had a palpable thrill. Hemostasis within the wound was achieved with a combination of manual pressure and Quick Clot. Once hemostasis was achieved the wounds were closed in 2 layers using a 3-0 Vicryl in running fashion in the deep dermal layers, 4-0 Monocryl in a running fashion the subcuticular layer, and Dermabond as a dressing. The patient tolerated the procedure well. All sponge, needle, and instrument counts were correct. The patient was taken to the recovery area in stable condition.
[2021-12-10 13:10] VITALS: BP 134/84
--- NOTE | 2021-12-10 17:40 | Post Anesthesia Evaluation ---
- Post Anesthesia Evaluation Patient Participated: Yes Airway Patent: Yes Stable Respiratory Function: Yes Nausea/Vomiting: No Temp > 96.8F: Yes Pain Manageable: Yes Adequeate Hydration: Yes Anesthesia Complications: No Block Receding Appropriately: Yes Patient on Ventilator: No
== END 2021-12-10 11:30 | disposition home or self-care (01) ==
LOC: OR 06:01
PROVIDERS: ATTEND Surgery Vascular Surgery
DX: I12.0 Hypertensive chronic kidney disease with stage 5 chronic kidney disease or end stage renal disease (principal); N18.6 End stage renal disease; G43.909 Migraine, unspecified, not intractable, without status migrainosus; E78.00 Pure hypercholesterolemia, unspecified; Z87.01 Personal history of pneumonia (recurrent); Z99.2 Dependence on renal dialysis; Z72.89 Other problems related to lifestyle; Z98.890 Other specified postprocedural states
CPT/HCPCS: 36821; 64415; 80048; 85027; C1757; J0690; J1100; J1170; J1644; J2250; J2405; J2704; J3010; J3490; J7030; J7040; 64450